=== PATIENT | female | born 1995 | race African-American/Black ===

== ENCOUNTER 2016-08-24 03:57 | Inpatient (IN) | payer OTHER ==
[~2016-08-24] VITALS: Ht 157.5 cm; Wt 45.4 kg
[~2016-08-24 03:57] MED LIST: SULF1TAB24 PO; TRAM50TA PO
[2016-08-24] MEDS ORDERED: IPRATRPIUM/ALBUTEROL 0.5/2.5MG 3 ML NEBU. NEB ONE ×2 (04:30→05:15)
[2016-08-24] MEDS ORDERED: ACETAMINOPHEN 325 MG TABLET. PO ONE (04:45)
[2016-08-24] MEDS ORDERED: ONDANSETRON PF 4 MG/2 ML VIAL. IV PRN (05:15)
[2016-08-24] MEDS ORDERED: MORPHINE SULFATE 2 MG/ML DISP.SYRIN. IV PRN (05:15)
[2016-08-24] MEDS ORDERED: PREDNISONE 10 MG TABLET PO ONE (05:15)
[2016-08-24] MEDS ORDERED: OSELTAMIVIR 75 MG CAPSULE PO ONE (05:15)
--- NOTE | 2016-08-24 05:31 | PHYS DOC ---
Past Medical History Past Medical History: Bronchitis Past Surgical History: No Surgical History Alcohol Use: None Drug Use: Cocaine, Marijuana Adult General Chief Complaint Chief Complaint: DYSPNEA/RESPIRATOY DISTRESS HPI HPI 20-year-old female presenting to the emergency department today with dyspnea cough and wheezing with fever. She is been using an inhaler without relief. She has a history of asthma. Her cough is minimally productive. She is febrile here in the emergency department. Onset 48 hours. Duration intermittent. No alleviating or exacerbating factors. Nonradiating. Review of systems is negative for nausea vomiting diarrhea. Positive for fever cough and shortness of breath. All other review of systems is negative unless otherwise noted in history of present illness. Review of Systems Review of Systems SEE ABOVE. Current Medications Current Medications Current Medications Medications (Trade) Dose Ordered Sig/Alireza Start Time Stop Time Status Last Admin Dose Admin Acetaminophen (Tylenol) 650 mg 1X ONCE 08/24/16 04:45 08/24/16 04:46 DC Albuterol/ Ipratropium (Duoneb) 3 ml RTQID 08/24/16 08:00 08/25/16 07:59 Morphine Sulfate 2 mg PRN Q2HR PRN 08/24/16 05:15 08/25/16 05:14 Ondansetron HCl (Zofran) 4 mg PRN Q8HRS PRN 08/24/16 05:15 08/25/16 05:14 Oseltamivir Phosphate (Tamiflu) 75 mg 1X ONCE 08/24/16 05:15 08/24/16 05:16 DC Prednisone (Prednisone) 50 mg 1X ONCE 08/24/16 05:15 08/24/16 05:16 DC Allergies Allergies Allergies Coded Allergies Type Severity Reaction Last Updated Verified No Known Drug Allergies 08/19/16 No Physical Exam Physical Exam Constitutional: Well developed, well nourished, no acute distress, non-toxic appearance. [] HENT: Normocephalic, atraumatic, bilateral external ears normal, oropharynx moist, no oral exudates, nose normal. [] Eyes: PERRLA, EOMI, conjunctiva normal, no discharge. [] Neck: Normal range of motion, no tenderness, supple, no stridor. [] Cardiovascular:Heart rate regular rhythm, no murmur [] Lungs & Thorax: Bilateral breath sounds clear to auscultation [] Abdomen: Bowel sounds normal, soft, no tenderness, no masses, no pulsatile masses. [] Skin: Warm, dry, no erythema, no rash. [] Back: No tenderness, no CVA tenderness. [] Extremities: No tenderness, no cyanosis, no clubbing, ROM intact, no edema. [] Neurologic: Alert and oriented X 3, normal motor function, normal sensory function, no focal deficits noted. [] Psychologic: Affect normal, judgement normal, mood normal. [] Current Patient Data Vital Signs Vital Signs Date Time Temp Pulse Resp B/P Pulse Ox O2 Delivery O2 Flow Rate FiO2 08/24/16 04:39 95 Nasal Cannula 2.0 08/24/16 04:32 102.1 128 28 102.1 EKG EKG [] Radiology/Procedures Radiology/Procedures Chest x-ray shows no obvious infiltrate or pneumothorax present. [] Course & Med Decision Making Course & Med Decision Making Pertinent Labs and Imaging studies reviewed. (See chart for details) [] 20-year-old female presenting to the emergency department today with shortness of breath cough and fever. On examination the patient's vital signs showed fever with mild hypertension. Tachypneic with wheezing and hypoxic. She was given a DuoNeb which did not improve her symptoms. Another DuoNeb was ordered. Chest x-ray obtained which did not show any obvious infiltrate. Otherwise blood work sent. Rapid flu sent. Antibiotics and Tamiflu given. Patient admitted for hypoxia. Patient admitted for further evaluation workup and care. Dragon Disclaimer Dragon Disclaimer This electronic medical record was generated, in whole or in part, using a voice recognition dictation system. Departure Departure Impression: Primary Impression: Hypoxia Additional Impressions: Acute asthma Fever Disposition: ADMITTED INPATIENT Admitting Physician: Sara Wick Condition: IMPROVED Referrals: NO PCP (PCP) Problem Qualifiers KATTY MEDINA MD Aug 24, 2016 05:31
[2016-08-24] MEDS ORDERED: CEFTRIAXONE 1GM IVPB FOR OMNI 50 ML IV ONE (05:45)
[2016-08-24 06:20] LABS: OBC FLU VALID
[2016-08-24 06:32] LABS: BASO % 0 % (0-3); EOS % 0 % (0-3); HEMATOCRIT 40.2 % (36.0-47.0); HEMOGLOBIN 13.3 g/dL (12.0-15.5); LYMPH # 0.5 x10^3/uL (1.0-4.8); LYMPH % 7 % (24-48); MEAN CORPUSCULAR HEMOGLOBIN 27 pg (25-35); MEAN CORPUSCULAR HGB CONC 33 g/dL (31-37); MEAN CORPUSCULAR VOLUME 83 fL (79-100); MONO % 11 % (0-9); NEUT % 82 % (31-73); PLATELET COUNT 169 x10^3/uL (140-400); RED BLOOD COUNT 4.86 x10^6/uL (3.50-5.40); RED CELL DISTRIBUTION WIDTH 13.1 % (11.5-14.5); WHITE BLOOD COUNT 7.9 x10^3/uL (4.0-11.0)
[2016-08-24 06:42] LABS: CALCIUM 8.9 mg/dL (8.5-10.1); CREATININE 0.8 mg/dL (0.6-1.0); GFR 108.5; POTASSIUM 3.2 mmol/L (3.5-5.1)
--- NOTE | 2016-08-24 06:47 | EKG ---
[facility] [address] [place] [address] Test Date: 2016-08-24 Test Time: 05:42:47 Pat Name: HESHAM MEADE Department: Room: ED HOLD 6 Gender: F [employer] Affairs Manager: : 1995 Requested By: KATTY MEDINA Order Number: [id number] Reading MD: Shena Dennis Measurements Intervals Caroleen Rate: 115 P: 59 WA: 148 QRS: 49 QRSD: 86 T: 56 QT: 316 QTc: 439 Interpretive Statements SINUS TACHYCARDIA OTHERWISE NORMAL ECG RI6.01 No previous ECG available for comparison Electronically Signed On 08-26-2016 18:31:51 SAMPLER TESTER by Shena Dennis
--- NOTE | 2016-08-24 07:11 | RAD ---
Portable AP upright view CXR: Clinical indications: Chest pain tonight. Findings: No acute lung infiltrate or pleural effusion or pulmonary edema or lung mass or pneumothorax is seen. The heart size, pulmonary vasculature, mediastinum and both dagoberto are unremarkable. Scoliosis is seen. Impression: No acute radiographic abnormality is seen.
[2016-08-24] MEDS: IPRATRPIUM/ALBUTEROL 0.5/2.5MG 3 ML NEBU. NEB SCH ×4 (08:00→19:32)
--- NOTE | 2016-08-24 09:10 | ACF ---
MANUEL WESTGI 08/24/16 0910: Admit Criteria Forms Admit Criteria Forms Admit Criteria Forms ASTHMA Clinical Indications for Admission to Inpatient Care (Place 'X' for any and all applicable criteria): Admission is indicated for ANY ONE of the following (1)(2)(3)(4)(5): [ ]I. Absent or markedly diminished breath sounds (silent chest) [X]II. Oxygen saturation < 92% [ ]III. PaCO2 = / > 42 mm Hg (5.6 kPa) [ ]IV. Peak expiratory flow rate < 40% of predicted or personal best after treatment. [ ]V. Peak expiratory flow rate < 33% of predicted or personal before after treatment [ ]. Change in mental status [ ]VII. Ventilatory support required [ ]VIII. PaO2 < 60 mm Hg (8.0 kPa) [ ]IX. Cyanosis [ ]X. Cardiac dysrhythmia (e.g., bradycardia) [ ]XI. Hemodynamic instability [ ]XII. Radiographic evidence of complication requiring inpatient treatment (e.g., pneumonia, pneumothorax) [ ]XIII. Inpatient admission required rather than observation care (also use Asthma: Observation Care guideline as appropriate) because of ANY ONE of the following: [ ]a) Respiratory finding that is severe or persistent (eg, dyspnea, tachypnea, accessory muscle use) [ ]b) Airflow measurements less than 60% of predicted or personal best that persist (e.g., over 24 hours) or worsen despite treatments [ ]c) Supplemental oxygen or respiratory treatments for over 24 hours that are performable only in acute inpatient setting [ ]d) Other condition, treatment or monitoring requiring inpatient admission. Extended stay beyond goal length of stay may be needed for (26)(27)(28): [ ]a) Severe respiratory failure (23) (29) (30) [ ]b) Secondary causes and complications (25) [ ]c) Status asthmaticus [ ]d) Chronic obstructive asthma [ ]e) Older patients (29) [ ]f) Slow resolution [ ]g) Clinically significant exacerbation of comorbidities (eg, caitlyn. heart failure, atrial fibrillation) The original Snapchat content created by [employer] has been revised. The portions of the content which have been revised are identified through the use of italic text or in bold, and [employer] has neither reviewed nor approved the modified material. All other unmodified content is copyright [facility] [place] Please see references footnoted in the original [facility] edition 2016 KATTY MEDINA MD 08/27/16 2331: NIKKI WEST Aug 24, 2016 09:10 KATTY MEDINA MD Aug 27, 2016 23:31
[2016-08-24 10:41] VITALS: BP 102/62
[2016-08-24] MEDS ORDERED: TRAMADOL 50 MG TABLET. PO PRN (11:00)
--- NOTE | 2016-08-24 11:52 | PDOC ---
Provider Note Provider Note dictated SHERRIE JACKMAN MD Aug 24, 2016 11:52
[2016-08-24] MEDS ORDERED: OSELTAMIVIR 75 MG CAPSULE PO SCH (12:00)
--- NOTE | 2016-08-24 12:06 | CONS ---
DATE OF CONSULTATION: 08/24/2016 ATTENDING PHYSICIAN: Dr. Wick. REASON FOR CONSULTATION: Influenza. HISTORY OF PRESENT ILLNESS: The patient is a 20-year-old female who presented to the hospital with cough, weakness and flu-like symptoms and subjective fever. She denies any history of asthma. She has history of tobacco use for about a year. She was seen in the Emergency Room and had some wheezing, as a result she was hospitalized. I have reviewed patient's chest x-ray which was clear. Her influenza screen is positive for influenza A. PAST MEDICAL HISTORY: History of chronic bronchitis. PAST SURGICAL HISTORY: None. ALLERGIES: None. CURRENT MEDICATIONS: Reviewed as listed in the MRAD. REVIEW OF SYSTEMS: Twelve-point systems were obtained, pertinent positives discussed in history of present illness, otherwise noncontributory. All systems that were negative were reviewed as well. SOCIAL HISTORY: Smoking for 1 year. PHYSICAL EXAMINATION: VITAL SIGNS: Fever of 102, pulse ox 98% on 2 liters. NECK: Supple. LUNGS: With occasional wheeze. CARDIOVASCULAR: Regular rate and rhythm. ABDOMEN: Soft. EXTREMITIES: No pitting edema. LABORATORY DATA: Reviewed. White cell count 7.9, hemoglobin 13.3. IMPRESSION: 1. Acute influenza A. 2. High-grade fever secondary to influenza. 3. Mild reactive bronchospasm secondary to influenza. The patient has no known history of asthma. RECOMMENDATIONS: 1. Continue influenza precautions. 2. Add Tamiflu. 3. Continue oral Bactrim. 4. Duo Nebs. 5. Anticipate discharge in 24 hours if there is no further fever. SHERRIE JACKMAN MD DR: CORY/anaid JOB#: [id number] / [id number] DARIO
[2016-08-24 14:46] VITALS: BP 105/68
[2016-08-24 19:00] VITALS: BP 107/53
[2016-08-24] MEDS: SMZ/TMP 800/160MG TABLET. PO SCH (21:30)
[2016-08-24] MEDS: ZOLPIDEM 5 MG TABLET. PO PRN (22:10)
[2016-08-24 23:08] VITALS: BP_SYST 102; BP_SYST 152; BP_DIAS 65; BP_DIAS 88
[2016-08-25 03:00] VITALS: BP 83/49
--- NOTE | 2016-08-25 03:23 | HP ---
ADMIT DATE: 08/24/2016 CHIEF COMPLAINT: Flu symptoms. HISTORY OF PRESENT ILLNESS: The patient is a pleasant middle-aged female presents with flu symptoms. She has got nausea, shortness of breath, wheezing, cough. While in the ER, she is noted to be flu positive. I have discussed the case with ER physician. We are going to admit the patient, start on Tamiflu and consult infectious disease. PAST MEDICAL HISTORY: Bronchitis and asthma. ALLERGIES: None. FAMILY HISTORY: Hypertension. SOCIAL HISTORY: She does not drink, smoke or take drugs. MEDICATIONS: Reviewed, please refer to the MRAD. REVIEW OF SYSTEMS: GENERAL: The patient complains of weakness. SKIN: No bruising, hair changes or rashes. EYES: No blurred, double or loss of vision. NOSE AND THROAT: No history of nosebleeds, hoarseness or sore throat. HEART: No history of palpitations, chest pain or shortness of breath on exertion. LUNGS: The patient complains of cough, shortness of breath and wheezing. GASTROINTESTINAL: Denies changes in appetite, nausea, vomiting, diarrhea or constipation. GENITOURINARY: No history of frequency, urgency, hesitancy or nocturia. NEUROLOGIC: Denies history of numbness, tingling, tremor or weakness. PSYCHIATRIC: No history of panic, anxiety or depression. ENDOCRINE: No history of heat or cold intolerance, polyuria or polydipsia. EXTREMITIES: Denies muscle weakness, joint pain, pain on walking or stiffness. PHYSICAL EXAMINATION: VITAL SIGNS: Temperature 102.1, pulse 123, respirations 22, blood pressure 101/66, O2 sat 92% on room air. GENERAL: She is alert, cooperative. HEART: Normal S1, S2. LUNGS: Slight crackles. ABDOMEN: Soft, positive bowel sounds. EXTREMITIES: No edema. SKIN: No rashes, but she does have some piercing. ENDOCRINE: No thyromegaly. LYMPHATICS: No cervical nodes. HEMATOPOIETIC: No bruising. LABORATORY DATA: Influenza A is positive. White count 7.9, hemoglobin 13, platelets 169. Electrolytes normal, although low potassium of 3.2 and glucose 112. ASSESSMENT AND PLAN: Influenza and hypokalemia. The patient is being admitted. We will replace her potassium and give her IV fluids. Start Tamiflu. Consult infectious disease. Resume home medicines. RADHAL Christie HARRY DO DR: Chio JOB#: [id number] / [id number]
[2016-08-25 06:11] LABS: BASO % 0 % (0-3); EOS % 1 % (0-3); HEMATOCRIT 39.6 % (36.0-47.0); HEMOGLOBIN 13.1 g/dL (12.0-15.5); LYMPH # 1.2 x10^3/uL (1.0-4.8); LYMPH % 20 % (24-48); MEAN CORPUSCULAR HEMOGLOBIN 27 pg (25-35); MEAN CORPUSCULAR HGB CONC 33 g/dL (31-37); MEAN CORPUSCULAR VOLUME 82 fL (79-100); MONO % 14 % (0-9); NEUT % 65 % (31-73); PLATELET COUNT 173 x10^3/uL (140-400); RED BLOOD COUNT 4.81 x10^6/uL (3.50-5.40); RED CELL DISTRIBUTION WIDTH 13.6 % (11.5-14.5); WHITE BLOOD COUNT 6.2 x10^3/uL (4.0-11.0)
[2016-08-25 06:56] LABS: CALCIUM 8.8 mg/dL (8.5-10.1); CREATININE 0.7 mg/dL (0.6-1.0); GFR 126.6; POTASSIUM 3.3 mmol/L (3.5-5.1)
[2016-08-25] MEDS: IPRATRPIUM/ALBUTEROL 0.5/2.5MG 3 ML NEBU. NEB SCH (08:11)
[2016-08-25 08:43] VITALS: BP 100/54
[2016-08-25] MEDS: OSELTAMIVIR 75 MG CAPSULE PO SCH ×2 (08:47→20:28)
[2016-08-25] MEDS: SMZ/TMP 800/160MG TABLET. PO SCH (08:47)
--- NOTE | 2016-08-25 09:26 | PDOC ---
PULMONARY PROGRESS NOTES Subjective no sob, cough better, no pain Vitals Vital Signs Date Time Temp Pulse Resp B/P Pulse Ox O2 Delivery O2 Flow Rate FiO2 08/25/16 08:43 98.3 111 20 100/54 97 98.3 08/25/16 08:01 Room Air 08/24/16 10:40 2.0 Comments ros as mentioned as above, other sys otherwise neg. General: Alert HEENT: Other (nc at perrl, throat nose clear) Lungs: Clear Cardiovascular: S1, S2 Abdomen: Soft, Non-tender Neuro Exam: Alert, Oriented Extremities: No Edema Skin: Warm Labs Laboratory Tests Test 08/24/16 05:01 08/24/16 06:10 08/24/16 06:19 08/25/16 05:00 Influenza Type A Antigen Positive (NEGATIVE) Influenza Type B Antigen Negative (NEGATIVE) White Blood Count 7.9x10^3/uL (4.0-11.0) 6.2x10^3/uL (4.0-11.0) Red Blood Count 4.86x10^6/uL (3.50-5.40) 4.81x10^6/uL (3.50-5.40) Hemoglobin 13.3g/dL (12.0-15.5) 13.1g/dL (12.0-15.5) Hematocrit 40.2% (36.0-47.0) 39.6% (36.0-47.0) Mean Corpuscular Volume 83fL (79-100) 82fL (79-100) Mean Corpuscular Hemoglobin 27pg (25-35) 27pg (25-35) Mean Corpuscular Hemoglobin Concent 33g/dL (31-37) 33g/dL (31-37) Red Cell Distribution Width 13.1% (11.5-14.5) 13.6% (11.5-14.5) Platelet Count 169x10^3/uL (140-400) 173x10^3/uL (140-400) Neutrophils (%) (Auto) 82% (31-73) 65% (31-73) Lymphocytes (%) (Auto) 7% (24-48) 20% (24-48) Monocytes (%) (Auto) 11% (0-9) 14% (0-9) Eosinophils (%) (Auto) 0% (0-3) 1% (0-3) Basophils (%) (Auto) 0% (0-3) 0% (0-3) Neutrophils # (Auto) 6.5x10^3uL (1.8-7.7) 4.0x10^3uL (1.8-7.7) Lymphocytes # (Auto) 0.5x10^3/uL (1.0-4.8) 1.2x10^3/uL (1.0-4.8) Monocytes # (Auto) 0.9x10^3/uL (0.0-1.1) 0.9x10^3/uL (0.0-1.1) Eosinophils # (Auto) 0.0x10^3/uL (0.0-0.7) 0.0x10^3/uL (0.0-0.7) Basophils # (Auto) 0.0x10^3/uL (0.0-0.2) 0.0x10^3/uL (0.0-0.2) Sodium Level 137mmol/L (136-145) 140mmol/L (136-145) Potassium Level 3.2mmol/L (3.5-5.1) 3.3mmol/L (3.5-5.1) Chloride Level 102mmol/L (98-107) 102mmol/L (98-107) Carbon Dioxide Level 26mmol/L (21-32) 28mmol/L (21-32) Anion Gap 9 (6-14) 10 (6-14) Blood Urea Nitrogen 6mg/dL (7-20) 6mg/dL (7-20) Creatinine 0.8mg/dL (0.6-1.0) 0.7mg/dL (0.6-1.0) Estimated GFR (Cockcroft-Gault) 108.5 126.6 Glucose Level 112mg/dL (70-99) 94mg/dL (70-99) Calcium Level 8.9mg/dL (8.5-10.1) 8.8mg/dL (8.5-10.1) Bedside Urine HCG, Qualitative hcg negative (Negative) Laboratory Tests Test 08/25/16 05:00 White Blood Count 6.2x10^3/uL (4.0-11.0) Red Blood Count 4.81x10^6/uL (3.50-5.40) Hemoglobin 13.1g/dL (12.0-15.5) Hematocrit 39.6% (36.0-47.0) Mean Corpuscular Volume 82fL (79-100) Mean Corpuscular Hemoglobin 27pg (25-35) Mean Corpuscular Hemoglobin Concent 33g/dL (31-37) Red Cell Distribution Width 13.6% (11.5-14.5) Platelet Count 173x10^3/uL (140-400) Neutrophils (%) (Auto) 65% (31-73) Lymphocytes (%) (Auto) 20% (24-48) Monocytes (%) (Auto) 14% (0-9) Eosinophils (%) (Auto) 1% (0-3) Basophils (%) (Auto) 0% (0-3) Neutrophils # (Auto) 4.0x10^3uL (1.8-7.7) Lymphocytes # (Auto) 1.2x10^3/uL (1.0-4.8) Monocytes # (Auto) 0.9x10^3/uL (0.0-1.1) Eosinophils # (Auto) 0.0x10^3/uL (0.0-0.7) Basophils # (Auto) 0.0x10^3/uL (0.0-0.2) Sodium Level 140mmol/L (136-145) Potassium Level 3.3mmol/L (3.5-5.1) Chloride Level 102mmol/L (98-107) Carbon Dioxide Level 28mmol/L (21-32) Anion Gap 10 (6-14) Blood Urea Nitrogen 6mg/dL (7-20) Creatinine 0.7mg/dL (0.6-1.0) Estimated GFR (Cockcroft-Gault) 126.6 Glucose Level 94mg/dL (70-99) Calcium Level 8.8mg/dL (8.5-10.1) Medications Active Scripts Medications Dose Route/Sig Days Date Category Bactrim Ds Tablet (Sulfamethoxazole/Trimethoprim) 1 Each Tablet 1 Each PO BID 08/19/16 Rx Tramadol Hcl 50 Mg Tablet 50 Mg PO Q6H PRN 08/19/16 Rx Comments cxr reviewed Impression . 1. Acute influenza A. 2. High-grade fever secondary to influenza, resolved 3. Mild reactive bronchospasm secondary to influenza. The patient has no known history of asthma. Plan . RECOMMENDATIONS: 1. Continue influenza precautions. 2. Tamiflu. 3. Continue oral Bactrim. 4. Duo Nebs. 5. ok to dc per pulm standpoint JALEN SHANKAR MD Aug 25, 2016 09:26
[2016-08-25] MEDS: CEFTRIAXONE SODIUM 1 GM in IV NORMAL SALINE 50ML 50 ML IV SCH (09:49)
--- NOTE | 2016-08-25 11:04 | PDOC ---
PROGRESS NOTES Chief Complaint Chief Complaint 1. Influenza 2. Hypokalemia 3. Fever 4.. Hx of Asthma 5. Hx of Bronchitis History of Present Illness History of Present Illness Pt feeling better this morning. Still has mild cough per her report during visit. The pt states she also feels tired/fatigued but is doing better than on admission. BLAYNE RN- VSS Vitals Vitals Vital Signs Date Time Temp Pulse Resp B/P Pulse Ox O2 Delivery O2 Flow Rate FiO2 08/25/16 08:43 98.3 111 20 100/54 97 98.3 08/25/16 08:10 Room Air 08/24/16 10:40 2.0 Physical Exam General: Alert, Oriented X3, Cooperative, No acute distress Heart: Regular rate, No murmurs Lungs: Clear, Other (no wheezes or crackles) Abdomen: Soft, No tenderness Extremities: No cyanosis, No edema Skin: No rashes, No breakdown Labs LABS Laboratory Tests Test 08/25/16 05:00 White Blood Count 6.2x10^3/uL (4.0-11.0) Red Blood Count 4.81x10^6/uL (3.50-5.40) Hemoglobin 13.1g/dL (12.0-15.5) Hematocrit 39.6% (36.0-47.0) Mean Corpuscular Volume 82fL (79-100) Mean Corpuscular Hemoglobin 27pg (25-35) Mean Corpuscular Hemoglobin Concent 33g/dL (31-37) Red Cell Distribution Width 13.6% (11.5-14.5) Platelet Count 173x10^3/uL (140-400) Neutrophils (%) (Auto) 65% (31-73) Lymphocytes (%) (Auto) 20% (24-48) Monocytes (%) (Auto) 14% (0-9) Eosinophils (%) (Auto) 1% (0-3) Basophils (%) (Auto) 0% (0-3) Neutrophils # (Auto) 4.0x10^3uL (1.8-7.7) Lymphocytes # (Auto) 1.2x10^3/uL (1.0-4.8) Monocytes # (Auto) 0.9x10^3/uL (0.0-1.1) Eosinophils # (Auto) 0.0x10^3/uL (0.0-0.7) Basophils # (Auto) 0.0x10^3/uL (0.0-0.2) Sodium Level 140mmol/L (136-145) Potassium Level 3.3mmol/L (3.5-5.1) Chloride Level 102mmol/L (98-107) Carbon Dioxide Level 28mmol/L (21-32) Anion Gap 10 (6-14) Blood Urea Nitrogen 6mg/dL (7-20) Creatinine 0.7mg/dL (0.6-1.0) Estimated GFR (Cockcroft-Gault) 126.6 Glucose Level 94mg/dL (70-99) Calcium Level 8.8mg/dL (8.5-10.1) Review of Systems Review of Systems Complaining of Mild Cough Complaining of Fatigue All other ROS Negative Assessment and Plan Assessmemt and Plan Problems Medical Problems: (1) Acute asthma Status: Acute (2) Fever Status: Acute (3) Hypoxia Status: Acute 1. Influenza 2. Hypokalemia 3. Fever 4. Asthma 5. Hx of Bronchitis Plan: - ID Consulted- Pending Recommendations - Potassium Replaced yesterday; K: 3.3 today - Pulmonary Consult- appreciate recommendations - Will continue on Oral Bactrim as recommended and Tamiflu - Tamiflu Started- will continue to complete course after discharge - Continue nebs prn - Continue regular vitals checks Disposition: Discharge when ok with subspecialists Problems: Comment Review of Relevant I have reviewed the following items denise (where applicable) has been applied. Labs Laboratory Tests Test 08/24/16 05:01 08/24/16 06:10 08/24/16 06:19 08/25/16 05:00 Influenza Type A Antigen Positive (NEGATIVE) Influenza Type B Antigen Negative (NEGATIVE) White Blood Count 7.9x10^3/uL (4.0-11.0) 6.2x10^3/uL (4.0-11.0) Red Blood Count 4.86x10^6/uL (3.50-5.40) 4.81x10^6/uL (3.50-5.40) Hemoglobin 13.3g/dL (12.0-15.5) 13.1g/dL (12.0-15.5) Hematocrit 40.2% (36.0-47.0) 39.6% (36.0-47.0) Mean Corpuscular Volume 83fL (79-100) 82fL (79-100) Mean Corpuscular Hemoglobin 27pg (25-35) 27pg (25-35) Mean Corpuscular Hemoglobin Concent 33g/dL (31-37) 33g/dL (31-37) Red Cell Distribution Width 13.1% (11.5-14.5) 13.6% (11.5-14.5) Platelet Count 169x10^3/uL (140-400) 173x10^3/uL (140-400) Neutrophils (%) (Auto) 82% (31-73) 65% (31-73) Lymphocytes (%) (Auto) 7% (24-48) 20% (24-48) Monocytes (%) (Auto) 11% (0-9) 14% (0-9) Eosinophils (%) (Auto) 0% (0-3) 1% (0-3) Basophils (%) (Auto) 0% (0-3) 0% (0-3) Neutrophils # (Auto) 6.5x10^3uL (1.8-7.7) 4.0x10^3uL (1.8-7.7) Lymphocytes # (Auto) 0.5x10^3/uL (1.0-4.8) 1.2x10^3/uL (1.0-4.8) Monocytes # (Auto) 0.9x10^3/uL (0.0-1.1) 0.9x10^3/uL (0.0-1.1) Eosinophils # (Auto) 0.0x10^3/uL (0.0-0.7) 0.0x10^3/uL (0.0-0.7) Basophils # (Auto) 0.0x10^3/uL (0.0-0.2) 0.0x10^3/uL (0.0-0.2) Sodium Level 137mmol/L (136-145) 140mmol/L (136-145) Potassium Level 3.2mmol/L (3.5-5.1) 3.3mmol/L (3.5-5.1) Chloride Level 102mmol/L (98-107) 102mmol/L (98-107) Carbon Dioxide Level 26mmol/L (21-32) 28mmol/L (21-32) Anion Gap 9 (6-14) 10 (6-14) Blood Urea Nitrogen 6mg/dL (7-20) 6mg/dL (7-20) Creatinine 0.8mg/dL (0.6-1.0) 0.7mg/dL (0.6-1.0) Estimated GFR (Cockcroft-Gault) 108.5 126.6 Glucose Level 112mg/dL (70-99) 94mg/dL (70-99) Calcium Level 8.9mg/dL (8.5-10.1) 8.8mg/dL (8.5-10.1) Bedside Urine HCG, Qualitative hcg negative (Negative) Laboratory Tests Test 08/25/16 05:00 White Blood Count 6.2x10^3/uL (4.0-11.0) Red Blood Count 4.81x10^6/uL (3.50-5.40) Hemoglobin 13.1g/dL (12.0-15.5) Hematocrit 39.6% (36.0-47.0) Mean Corpuscular Volume 82fL (79-100) Mean Corpuscular Hemoglobin 27pg (25-35) Mean Corpuscular Hemoglobin Concent 33g/dL (31-37) Red Cell Distribution Width 13.6% (11.5-14.5) Platelet Count 173x10^3/uL (140-400) Neutrophils (%) (Auto) 65% (31-73) Lymphocytes (%) (Auto) 20% (24-48) Monocytes (%) (Auto) 14% (0-9) Eosinophils (%) (Auto) 1% (0-3) Basophils (%) (Auto) 0% (0-3) Neutrophils # (Auto) 4.0x10^3uL (1.8-7.7) Lymphocytes # (Auto) 1.2x10^3/uL (1.0-4.8) Monocytes # (Auto) 0.9x10^3/uL (0.0-1.1) Eosinophils # (Auto) 0.0x10^3/uL (0.0-0.7) Basophils # (Auto) 0.0x10^3/uL (0.0-0.2) Sodium Level 140mmol/L (136-145) Potassium Level 3.3mmol/L (3.5-5.1) Chloride Level 102mmol/L (98-107) Carbon Dioxide Level 28mmol/L (21-32) Anion Gap 10 (6-14) Blood Urea Nitrogen 6mg/dL (7-20) Creatinine 0.7mg/dL (0.6-1.0) Estimated GFR (Cockcroft-Gault) 126.6 Glucose Level 94mg/dL (70-99) Calcium Level 8.8mg/dL (8.5-10.1) Microbiology 08/24/16 Blood Culture - Final, Complete Medications Current Medications Albuterol/ Ipratropium (Duoneb) 3 ml 1X ONCE NEB Last administered on 04:40; Start 08/24/16 at 04:30; Stop 08/24/16 at 04:31; Status DC Acetaminophen (Tylenol) 650 mg 1X ONCE PO Last administered on 08/24/16 06:21 ; Start 08/24/16 at 04:45; Stop 08/24/16 at 04:46; Status DC Albuterol/ Ipratropium (Duoneb) 3 ml 1X ONCE NEB Last administered on 06:11; Start 08/24/16 at 05:15; Stop 08/24/16 at 05:16; Status DC Oseltamivir Phosphate (Tamiflu) 75 mg 1X ONCE PO Last administered on 06:22; Start 08/24/16 at 05:15; Stop 08/24/16 at 05:16; Status DC Ondansetron HCl (Zofran) 4 mg PRN Q8HRS PRN IV NAUSEA/VOMITING Last administered on 08/24/16 06:25; Start 08/24/16 at 05:15; Stop 08/25/16 at 05:14 ; Status DC Morphine Sulfate 2 mg PRN Q2HR PRN IV PAIN Last administered on 08/24/16 06:25 ; Start 08/24/16 at 05:15; Stop 08/25/16 at 05:14; Status DC Albuterol/ Ipratropium (Duoneb) 3 ml RTQID NEB Last administered on 08/25/16 08:11; Start 08/24/16 at 08:00; Stop 08/25/16 at 07:59; Status DC Prednisone 50 mg 50 mg 1X ONCE PO Last administered on 08/24/16 06:22; Start 08/24/16 at 05:15; Stop 08/24/16 at 05:16; Status DC Ceftriaxone Sodium (Rocephin 1gm Ivpb For Omni) 50 ml @ 100 mls/hr 1X ONCE IV Last administered on 08/24/16 06:23; Start 08/24/16 at 05:45; Stop 08/24/16 at 06:14; Status DC Trimethoprim/ Sulfamethoxazole (Bactrim Ds) 1 tab BID PO Last administered on 08:47; Start 08/24/16 at 21:00 Tramadol HCl (Ultram) 50 mg PRN Q6HRS PRN PO PAIN; Start 08/24/16 at 11:00 Oseltamivir Phosphate (Tamiflu) 75 mg BID PO Last administered on 08/24/16 16: 12; Start 08/24/16 at 12:00; Stop 08/24/16 at 19:13; Status DC Oseltamivir Phosphate (Tamiflu) 75 mg BID PO Last administered on 08/25/16 08: 47; Start 08/25/16 at 09:00; Stop 08/29/16 at 21:01 Zolpidem Tartrate 5 mg 5 mg PRN QHS PRN PO INSOMNIA Last administered on 22:10; Start 08/24/16 at 22:00; Stop 08/25/16 at 21:59 Ceftriaxone Sodium/Sodium Chloride (Rocephin/Iv Sodium Chloride 0.9% 50ml) 50 ml @ 100 mls/hr Q24H IV Last administered on 08/25/16 09:49; Start 08/25/16 at 09:30 Active Scripts Active Bactrim Ds Tablet (Sulfamethoxazole/Trimethoprim) 1 Each Tablet 1 Each PO BID Tramadol Hcl 50 Mg Tablet 50 Mg PO Q6H PRN Vitals/I & O Vital Sign - Last 24 Hours 08/24/16 08/24/16 08/24/16 08/24/16 11:50 14:46 14:49 15:45 Temp 98.3 98.3 Pulse 85 Resp 20 B/P 105/68 Pulse Ox 94 93 94 O2 Delivery Room Air Room Air Room Air Room Air 08/24/16 08/24/16 08/24/16 08/24/16 19:00 19:39 20:00 23:08 Temp 97.8 98.9 97.8 98.9 Pulse 86 98 Resp 20 20 B/P 107/53 102/65 Pulse Ox 95 94 94 O2 Delivery Room Air Room Air Room Air Room Air 08/25/16 08/25/16 08/25/16 08/25/16 03:00 08:01 08:10 08:43 Temp 98.3 98.3 98.3 98.3 Pulse 107 111 Resp 20 20 B/P 83/49 100/54 Pulse Ox 90 94 97 O2 Delivery Room Air Room Air Room Air Intake and Output 08/24/16 08/24/16 08/25/16 15:00 23:00 07:00 Intake Total 1200 ml 690 ml Balance 1200 ml 690 ml HOLLY HARRY III DO Aug 25, 2016 11:04
[2016-08-25 11:15] VITALS: BP 99/74
[2016-08-25] MEDS ORDERED: ONDANSETRON PF 4 MG/2 ML VIAL. IV PRN (13:30)
[2016-08-25 15:00] VITALS: BP 100/60
--- NOTE | 2016-08-25 15:49 | PDOC ---
Infectious Disease Note Vital Sign Vital Signs Vital Signs Date Time Temp Pulse Resp B/P Pulse Ox O2 Delivery O2 Flow Rate FiO2 08/25/16 11:15 98.5 110 20 99/74 94 98.5 08/25/16 08:10 Room Air 08/24/16 10:40 2.0 Labs Lab Laboratory Tests Test 08/25/16 05:00 White Blood Count 6.2x10^3/uL (4.0-11.0) Red Blood Count 4.81x10^6/uL (3.50-5.40) Hemoglobin 13.1g/dL (12.0-15.5) Hematocrit 39.6% (36.0-47.0) Mean Corpuscular Volume 82fL (79-100) Mean Corpuscular Hemoglobin 27pg (25-35) Mean Corpuscular Hemoglobin Concent 33g/dL (31-37) Red Cell Distribution Width 13.6% (11.5-14.5) Platelet Count 173x10^3/uL (140-400) Neutrophils (%) (Auto) 65% (31-73) Lymphocytes (%) (Auto) 20% (24-48) Monocytes (%) (Auto) 14% (0-9) Eosinophils (%) (Auto) 1% (0-3) Basophils (%) (Auto) 0% (0-3) Neutrophils # (Auto) 4.0x10^3uL (1.8-7.7) Lymphocytes # (Auto) 1.2x10^3/uL (1.0-4.8) Monocytes # (Auto) 0.9x10^3/uL (0.0-1.1) Eosinophils # (Auto) 0.0x10^3/uL (0.0-0.7) Basophils # (Auto) 0.0x10^3/uL (0.0-0.2) Sodium Level 140mmol/L (136-145) Potassium Level 3.3mmol/L (3.5-5.1) Chloride Level 102mmol/L (98-107) Carbon Dioxide Level 28mmol/L (21-32) Anion Gap 10 (6-14) Blood Urea Nitrogen 6mg/dL (7-20) Creatinine 0.7mg/dL (0.6-1.0) Estimated GFR (Cockcroft-Gault) 126.6 Glucose Level 94mg/dL (70-99) Calcium Level 8.8mg/dL (8.5-10.1) Objective Assessment Influenza Strep bacteremia Asthma Plan Plan of Care tamiflu rocephine check culture and adjust BURTON CERON MD Aug 25, 2016 15:49
[2016-08-25 19:00] VITALS: BP 108/67
[2016-08-25] MEDS: ZOLPIDEM 5 MG TABLET. PO PRN (20:28)
[2016-08-25 23:00] VITALS: BP 97/55
--- NOTE | 2016-08-26 00:11 | CONS ---
DATE OF CONSULTATION: 08/25/2016 REQUESTING PHYSICIAN: Dr. Sara Wick. REASON FOR CONSULTATION: Blood culture positive. HISTORY OF PRESENT ILLNESS: This is a 20-year-old -Citizen Of [place] female who had been sick for a couple of days. She says earlier this month, she came to the ER with bladder spasm. The patient was diagnosed with UTI, was given Bactrim. The patient now comes in with high-grade fever, some chills, not feeling well, aching all over, some nausea, cough, sore throat. The patient is diagnosed with influenza A. Also, patient has now blood culture positive with Gram-positive cocci in pairs and chains. I started her on Rocephin. The patient is on Tamiflu. The patient is feeling much comfortable now. The patient denies any headache, visual symptoms. Denies any chest pain, denies any abdominal pain, denies any urinary symptoms or bowel symptoms. Does have dry cough. PAST MEDICAL HISTORY: Positive for asthma. SOCIAL HISTORY: Negative for smoking, alcohol, illicit drug use. ALLERGIES: No known drug allergies. CURRENT MEDICATIONS: Reviewed. The patient is on Tamiflu and Rocephin. REVIEW OF SYSTEMS: As per HPI, all other systems reviewed are negative. PHYSICAL EXAMINATION: GENERAL: Alert, oriented female, not in distress. VITAL SIGNS: Stable, afebrile. HEENT: Both pupils are round and reacting. No conjunctival lesion, no lesion in the mouth. NECK: Supple, no JVP, no lymphadenopathy. LUNGS: Clear. HEART: S1, S2 regular. ABDOMEN: Benign. EXTREMITIES: No edema, cyanosis. SKIN: Unremarkable. NEUROLOGIC: The patient is neurologically intact. LABORATORY DATA: White count is normal. BUN and creatinine is normal. Chest x-ray is unremarkable. IMPRESSION: 1. Influenza A positive. 2. Blood culture positive with Gram-positive cocci in pairs and chains, most likely to be strep pneumo. 3. Fever. 4. Asthma. RECOMMENDATION: Would continue Tamiflu and Rocephin, supportive care and we will continue to follow. Thank you very much, Dr. Wick for giving me the opportunity to participate in this patient's care. BURTON CERON MD DR: ZEN/anaid JOB#: [id number] / [id number]
[2016-08-26 03:00] VITALS: BP 94/54
[2016-08-26] MEDS: OSELTAMIVIR 75 MG CAPSULE PO SCH ×2 (08:28→20:13)
[2016-08-26] MEDS: CEFTRIAXONE SODIUM 1 GM in IV NORMAL SALINE 50ML 50 ML IV SCH (08:28)
[2016-08-26 11:00] VITALS: BP 99/69
--- NOTE | 2016-08-26 12:14 | PDOC ---
Infectious Disease Note Subjective Subjective Feeling better Nonproductive cough. Denies SOA or CP ROS ROS GEN: Denies fevers, chills, sweats GI: Denies n/v/d Vital Sign Vital Signs Vital Signs Date Time Temp Pulse Resp B/P Pulse Ox O2 Delivery O2 Flow Rate FiO2 08/26/16 11:00 98.0 93 20 99/69 97 Room Air 98.0 Physical Exam PHYSICAL EXAM GENERAL: Walking back to bed, smiling, NAD HEENT: OC/OP clear NECK: Supple, LUNGS: Clear HEART: S1S2, no gallop, no murmur ABD: Soft, NT, BS present EXT: No edema, no cyanosis ANIMAL REHABILITATOR: Alert, oriented x 3, no focal neurologic deficit SKIN: No rash Labs Micro BLOOD CULTURE Final GRAM POSITIVE COCCI IN CHAINS, SUGGESTIVE OF STREP, Objective Assessment Influenza A positive. Bacteremia with gram-positive cocci in pairs and chains, most likely to be strep pneumo. POA Fever. Asthma. Plan Plan of Care Continue Tamiflu and Rocephin Await GPC ID Supportive care Attending Co-Sign The patient was seen and interviewed as well as examined at the bedside. The chart was reviewed. The case was discussed. Agree with the plan of care. BG GANDHI APRN Aug 26, 2016 12:14 BURTON CERON MD Aug 26, 2016 14:03
--- NOTE | 2016-08-26 14:38 | PDOC ---
PROGRESS NOTES Chief Complaint Chief Complaint 1. Influenza 2. Step Bacteremia 3. Hypokalemia 4. Fever 5. Hx of Asthma 6. Hx of Bronchitis History of Present Illness History of Present Illness Pt feeling better this morning. Still has mild persistent cough but improved since her admission. The pt has no new complaints at this time. Stated her tiredness/fatigue continues to improve at this time. BLAYNE RN- VSS; No problems overnight Vitals Vitals Vital Signs Date Time Temp Pulse Resp B/P Pulse Ox O2 Delivery O2 Flow Rate FiO2 08/26/16 11:00 98.0 93 20 99/69 97 Room Air 98.0 Physical Exam General: Alert, Oriented X3, Cooperative, No acute distress Heart: Regular rate, No murmurs Lungs: Clear, Other (no wheezes) Abdomen: Soft, No tenderness Extremities: No cyanosis, No edema Skin: No rashes, No breakdown Review of Systems Review of Systems Complaining of Fatigue Complaining of mild Cough All other ROS Negative Assessment and Plan Assessmemt and Plan Problems Medical Problems: (1) Acute asthma Status: Acute (2) Fever Status: Acute (3) Hypoxia Status: Acute 1. Influenza 2. Step Bacteremia 3. Hypokalemia 4. Fever 5. Hx of Asthma 6. Hx of Bronchitis Plan: - Continue Care per floor protocol - ID Consulted- Appreciate Recommendations - Will continue Tamiflu - ID started on Rocephin for Strep Bacteremia - Waiting Identification of the GPC - Await further recommendations - Potassium Replaced on admission; K: 3.3 agian today - Pulmonary Consult- appreciate recommendations - Will continue Tamiflu at this time - Continue nebs prn - Continue regular vitals checks Disposition: Discharge when ok with subspecialists Problems: Comment Review of Relevant I have reviewed the following items denise (where applicable) has been applied. Labs Laboratory Tests Test 08/25/16 05:00 White Blood Count 6.2x10^3/uL (4.0-11.0) Red Blood Count 4.81x10^6/uL (3.50-5.40) Hemoglobin 13.1g/dL (12.0-15.5) Hematocrit 39.6% (36.0-47.0) Mean Corpuscular Volume 82fL (79-100) Mean Corpuscular Hemoglobin 27pg (25-35) Mean Corpuscular Hemoglobin Concent 33g/dL (31-37) Red Cell Distribution Width 13.6% (11.5-14.5) Platelet Count 173x10^3/uL (140-400) Neutrophils (%) (Auto) 65% (31-73) Lymphocytes (%) (Auto) 20% (24-48) Monocytes (%) (Auto) 14% (0-9) Eosinophils (%) (Auto) 1% (0-3) Basophils (%) (Auto) 0% (0-3) Neutrophils # (Auto) 4.0x10^3uL (1.8-7.7) Lymphocytes # (Auto) 1.2x10^3/uL (1.0-4.8) Monocytes # (Auto) 0.9x10^3/uL (0.0-1.1) Eosinophils # (Auto) 0.0x10^3/uL (0.0-0.7) Basophils # (Auto) 0.0x10^3/uL (0.0-0.2) Sodium Level 140mmol/L (136-145) Potassium Level 3.3mmol/L (3.5-5.1) Chloride Level 102mmol/L (98-107) Carbon Dioxide Level 28mmol/L (21-32) Anion Gap 10 (6-14) Blood Urea Nitrogen 6mg/dL (7-20) Creatinine 0.7mg/dL (0.6-1.0) Estimated GFR (Cockcroft-Gault) 126.6 Glucose Level 94mg/dL (70-99) Calcium Level 8.8mg/dL (8.5-10.1) Microbiology 08/24/16 Blood Culture - Final, Complete Medications Current Medications Albuterol/ Ipratropium (Duoneb) 3 ml 1X ONCE NEB Last administered on 04:40; Start 08/24/16 at 04:30; Stop 08/24/16 at 04:31; Status DC Acetaminophen (Tylenol) 650 mg 1X ONCE PO Last administered on 08/24/16 06:21 ; Start 08/24/16 at 04:45; Stop 08/24/16 at 04:46; Status DC Albuterol/ Ipratropium (Duoneb) 3 ml 1X ONCE NEB Last administered on 06:11; Start 08/24/16 at 05:15; Stop 08/24/16 at 05:16; Status DC Oseltamivir Phosphate (Tamiflu) 75 mg 1X ONCE PO Last administered on 06:22; Start 08/24/16 at 05:15; Stop 08/24/16 at 05:16; Status DC Ondansetron HCl (Zofran) 4 mg PRN Q8HRS PRN IV NAUSEA/VOMITING Last administered on 08/24/16 06:25; Start 08/24/16 at 05:15; Stop 08/25/16 at 05:14 ; Status DC Morphine Sulfate 2 mg PRN Q2HR PRN IV PAIN Last administered on 08/24/16 06:25 ; Start 08/24/16 at 05:15; Stop 08/25/16 at 05:14; Status DC Albuterol/ Ipratropium (Duoneb) 3 ml RTQID NEB Last administered on 08/25/16 08:11; Start 08/24/16 at 08:00; Stop 08/25/16 at 07:59; Status DC Prednisone 50 mg 50 mg 1X ONCE PO Last administered on 08/24/16 06:22; Start 08/24/16 at 05:15; Stop 08/24/16 at 05:16; Status DC Ceftriaxone Sodium (Rocephin 1gm Ivpb For Omni) 50 ml @ 100 mls/hr 1X ONCE IV Last administered on 08/24/16 06:23; Start 08/24/16 at 05:45; Stop 08/24/16 at 06:14; Status DC Trimethoprim/ Sulfamethoxazole (Bactrim Ds) 1 tab BID PO Last administered on 08:47; Start 08/24/16 at 21:00; Stop 08/25/16 at 15:52; Status DC Tramadol HCl (Ultram) 50 mg PRN Q6HRS PRN PO PAIN; Start 08/24/16 at 11:00 Oseltamivir Phosphate (Tamiflu) 75 mg BID PO Last administered on 08/24/16 16: 12; Start 08/24/16 at 12:00; Stop 08/24/16 at 19:13; Status DC Oseltamivir Phosphate (Tamiflu) 75 mg BID PO Last administered on 2/12/17at 08: 28; Start 08/25/16 at 09:00; Stop 08/29/16 at 21:01 Zolpidem Tartrate 5 mg 5 mg PRN QHS PRN PO INSOMNIA Last administered on 20:28; Start 08/24/16 at 22:00; Stop 08/25/16 at 21:59; Status DC Ceftriaxone Sodium/Sodium Chloride (Rocephin/Iv Sodium Chloride 0.9% 50ml) 50 ml @ 100 mls/hr Q24H IV Last administered on 08/26/16 08:28; Start 08/25/16 at 09:30 Ondansetron HCl (Zofran) 4 mg PRN Q6HRS PRN IV NAUSEA/VOMITING Last administered on 08/25/16 14:00; Start 08/25/16 at 13:30 Active Scripts Active Bactrim Ds Tablet (Sulfamethoxazole/Trimethoprim) 1 Each Tablet 1 Each PO BID Tramadol Hcl 50 Mg Tablet 50 Mg PO Q6H PRN Vitals/I & O Vital Sign - Last 24 Hours 08/25/16 08/25/16 08/25/16 08/25/16 15:00 19:00 20:15 23:00 Temp 97.9 99.3 99.0 97.9 99.3 99.0 Pulse 104 104 96 Resp 22 22 20 B/P 100/60 108/67 97/55 Pulse Ox 96 93 92 O2 Delivery Room Air Room Air Room Air 08/26/16 08/26/16 08/26/16 08/26/16 03:00 07:00 08:00 11:00 Temp 98.7 98.6 98.0 98.7 98.6 98.0 Pulse 79 62 93 Resp 16 16 20 B/P 94/54 99/69 Pulse Ox 95 97 O2 Delivery Room Air Room Air Intake and Output 08/25/16 08/25/16 08/26/16 15:00 23:00 07:00 Intake Total 720 ml 1240 ml 1000 ml Output Total 1 ml Balance 719 ml 1240 ml 1000 ml HOLLY HARRY III DO Aug 26, 2016 14:38
[2016-08-26] MEDS ORDERED: LORAZEPAM 0.5 MG TABLET. PO ONE (14:45)
[2016-08-26 15:40] VITALS: BP 113/79
[2016-08-26 19:00] VITALS: BP 93/63
[2016-08-26 20:00] VITALS: BP 93/63
[2016-08-26] MEDS ORDERED: ZOLPIDEM 5 MG TABLET. PO PRN (20:30)
[2016-08-26 23:00] VITALS: BP 124/86
[2016-08-27 03:00] VITALS: BP 96/53
[2016-08-27 07:00] VITALS: BP 105/70
[2016-08-27 07:27] LABS: BASO % 1 % (0-3); EOS % 7 % (0-3); HEMOGLOBIN 13.3 g/dL (12.0-15.5); LYMPH # 1.2 x10^3/uL (1.0-4.8); LYMPH % 37 % (24-48); MEAN CORPUSCULAR HEMOGLOBIN 27 pg (25-35); MEAN CORPUSCULAR HGB CONC 33 g/dL (31-37); MEAN CORPUSCULAR VOLUME 84 fL (79-100); MONO % 22 % (0-9); NEUT % 33 % (31-73); PLATELET COUNT 193 x10^3/uL (140-400); RED BLOOD COUNT 4.91 x10^6/uL (3.50-5.40); RED CELL DISTRIBUTION WIDTH 13.6 % (11.5-14.5); WHITE BLOOD COUNT 3.3 x10^3/uL (4.0-11.0)
[2016-08-27 07:34] LABS: CALCIUM 9.1 mg/dL (8.5-10.1); CREATININE 0.8 mg/dL (0.6-1.0); GFR 108.5; POTASSIUM 3.9 mmol/L (3.5-5.1)
[2016-08-27 08:29] LABS: % EOS 6 % (0-5)
[2016-08-27 08:30] LABS: PLT ESTIMATE ADEQUATE (ADEQUATE)
[2016-08-27] MEDS: OSELTAMIVIR 75 MG CAPSULE PO SCH (09:35)
[2016-08-27] MEDS: CEFTRIAXONE SODIUM 1 GM in IV NORMAL SALINE 50ML 50 ML IV SCH (09:35)
[2016-08-27 11:00] VITALS: BP 111/77
--- NOTE | 2016-08-27 11:54 | PDOC ---
PROGRESS NOTES Chief Complaint Chief Complaint 1. Influenza 2. Step Bacteremia 3. Hypokalemia 4. Fever 5. Hx of Asthma 6. Hx of Bronchitis History of Present Illness History of Present Illness Patient awake, alert, and oriented when seen this AM. Family members present and at bedside. Pt states she really wants to go home. Pt states she is very anxious and stressed but will not identify any inducing factor. All questions and concerns addressed and answered. BLAYNE RN- VSS; No problems overnight Vitals Vitals Vital Signs Date Time Temp Pulse Resp B/P Pulse Ox O2 Delivery O2 Flow Rate FiO2 08/27/16 11:00 96.1 109 18 111/77 98 Room Air 96.1 Physical Exam General: Alert, Oriented X3, Cooperative, No acute distress Heart: Regular rate, Normal S1, Normal S2, No murmurs Lungs: Clear, Other (no wheezes) Abdomen: Soft, No tenderness Extremities: No clubbing, No cyanosis, No edema Skin: No rashes, No breakdown, No significant lesion Labs LABS Laboratory Tests Test 08/27/16 06:55 White Blood Count 3.3x10^3/uL (4.0-11.0) Red Blood Count 4.91x10^6/uL (3.50-5.40) Hemoglobin 13.3g/dL (12.0-15.5) Hematocrit 41.0% (36.0-47.0) Mean Corpuscular Volume 84fL (79-100) Mean Corpuscular Hemoglobin 27pg (25-35) Mean Corpuscular Hemoglobin Concent 33g/dL (31-37) Red Cell Distribution Width 13.6% (11.5-14.5) Platelet Count 193x10^3/uL (140-400) Neutrophils (%) (Auto) 33% (31-73) Lymphocytes (%) (Auto) 37% (24-48) Monocytes (%) (Auto) 22% (0-9) Eosinophils (%) (Auto) 7% (0-3) Basophils (%) (Auto) 1% (0-3) Neutrophils # (Auto) 1.1x10^3uL (1.8-7.7) Lymphocytes # (Auto) 1.2x10^3/uL (1.0-4.8) Monocytes # (Auto) 0.7x10^3/uL (0.0-1.1) Eosinophils # (Auto) 0.2x10^3/uL (0.0-0.7) Basophils # (Auto) 0.0x10^3/uL (0.0-0.2) Segmented Neutrophils % 30% (35-66) Band Neutrophils % 3% (0-9) Lymphocytes % 43% (24-48) Atypical Lymphocytes % (Manual) 1% (0-0) Monocytes % 17% (0-10) Eosinophils % 6% (0-5) Platelet Estimate Adequate (ADEQUATE) Sodium Level 143mmol/L (136-145) Potassium Level 3.9mmol/L (3.5-5.1) Chloride Level 106mmol/L (98-107) Carbon Dioxide Level 27mmol/L (21-32) Anion Gap 10 (6-14) Blood Urea Nitrogen 11mg/dL (7-20) Creatinine 0.8mg/dL (0.6-1.0) Estimated GFR (Cockcroft-Gault) 108.5 Glucose Level 80mg/dL (70-99) Calcium Level 9.1mg/dL (8.5-10.1) Review of Systems Review of Systems Patient complaint of anxiety Patient complaint of hunger Assessment and Plan Assessmemt and Plan Problems Medical Problems: (1) Acute asthma Status: Acute (2) Fever Status: Acute (3) Hypoxia Status: Acute Assessment: 1. Influenza 2. Step Bacteremia 3. Hypokalemia 4. Fever 5. Hx of Asthma 6. Hx of Bronchitis Plan: Continue to monitor the patient per floor protocol Daily CBC, BMP, BUN, and Cr Continue to monitor vitals DW RN Appreciate ID and Pulmonary input and recommendations Continue Tamiful at DC Possible DC later this afternoon Problems: Comment Review of Relevant I have reviewed the following items denise (where applicable) has been applied. Labs Laboratory Tests Test 08/27/16 06:55 White Blood Count 3.3x10^3/uL (4.0-11.0) Red Blood Count 4.91x10^6/uL (3.50-5.40) Hemoglobin 13.3g/dL (12.0-15.5) Hematocrit 41.0% (36.0-47.0) Mean Corpuscular Volume 84fL (79-100) Mean Corpuscular Hemoglobin 27pg (25-35) Mean Corpuscular Hemoglobin Concent 33g/dL (31-37) Red Cell Distribution Width 13.6% (11.5-14.5) Platelet Count 193x10^3/uL (140-400) Neutrophils (%) (Auto) 33% (31-73) Lymphocytes (%) (Auto) 37% (24-48) Monocytes (%) (Auto) 22% (0-9) Eosinophils (%) (Auto) 7% (0-3) Basophils (%) (Auto) 1% (0-3) Neutrophils # (Auto) 1.1x10^3uL (1.8-7.7) Lymphocytes # (Auto) 1.2x10^3/uL (1.0-4.8) Monocytes # (Auto) 0.7x10^3/uL (0.0-1.1) Eosinophils # (Auto) 0.2x10^3/uL (0.0-0.7) Basophils # (Auto) 0.0x10^3/uL (0.0-0.2) Segmented Neutrophils % 30% (35-66) Band Neutrophils % 3% (0-9) Lymphocytes % 43% (24-48) Atypical Lymphocytes % (Manual) 1% (0-0) Monocytes % 17% (0-10) Eosinophils % 6% (0-5) Platelet Estimate Adequate (ADEQUATE) Sodium Level 143mmol/L (136-145) Potassium Level 3.9mmol/L (3.5-5.1) Chloride Level 106mmol/L (98-107) Carbon Dioxide Level 27mmol/L (21-32) Anion Gap 10 (6-14) Blood Urea Nitrogen 11mg/dL (7-20) Creatinine 0.8mg/dL (0.6-1.0) Estimated GFR (Cockcroft-Gault) 108.5 Glucose Level 80mg/dL (70-99) Calcium Level 9.1mg/dL (8.5-10.1) Laboratory Tests Test 08/27/16 06:55 White Blood Count 3.3x10^3/uL (4.0-11.0) Red Blood Count 4.91x10^6/uL (3.50-5.40) Hemoglobin 13.3g/dL (12.0-15.5) Hematocrit 41.0% (36.0-47.0) Mean Corpuscular Volume 84fL (79-100) Mean Corpuscular Hemoglobin 27pg (25-35) Mean Corpuscular Hemoglobin Concent 33g/dL (31-37) Red Cell Distribution Width 13.6% (11.5-14.5) Platelet Count 193x10^3/uL (140-400) Neutrophils (%) (Auto) 33% (31-73) Lymphocytes (%) (Auto) 37% (24-48) Monocytes (%) (Auto) 22% (0-9) Eosinophils (%) (Auto) 7% (0-3) Basophils (%) (Auto) 1% (0-3) Neutrophils # (Auto) 1.1x10^3uL (1.8-7.7) Lymphocytes # (Auto) 1.2x10^3/uL (1.0-4.8) Monocytes # (Auto) 0.7x10^3/uL (0.0-1.1) Eosinophils # (Auto) 0.2x10^3/uL (0.0-0.7) Basophils # (Auto) 0.0x10^3/uL (0.0-0.2) Segmented Neutrophils % 30% (35-66) Band Neutrophils % 3% (0-9) Lymphocytes % 43% (24-48) Atypical Lymphocytes % (Manual) 1% (0-0) Monocytes % 17% (0-10) Eosinophils % 6% (0-5) Platelet Estimate Adequate (ADEQUATE) Sodium Level 143mmol/L (136-145) Potassium Level 3.9mmol/L (3.5-5.1) Chloride Level 106mmol/L (98-107) Carbon Dioxide Level 27mmol/L (21-32) Anion Gap 10 (6-14) Blood Urea Nitrogen 11mg/dL (7-20) Creatinine 0.8mg/dL (0.6-1.0) Estimated GFR (Cockcroft-Gault) 108.5 Glucose Level 80mg/dL (70-99) Calcium Level 9.1mg/dL (8.5-10.1) Microbiology 08/24/16 Blood Culture - Preliminary, Resulted 08/24/16 Blood Culture Result 1 (LINDA) - Preliminary, Resulted Medications Current Medications Albuterol/ Ipratropium (Duoneb) 3 ml 1X ONCE NEB Last administered on 04:40; Start 08/24/16 at 04:30; Stop 08/24/16 at 04:31; Status DC Acetaminophen (Tylenol) 650 mg 1X ONCE PO Last administered on 08/24/16 06:21 ; Start 08/24/16 at 04:45; Stop 08/24/16 at 04:46; Status DC Albuterol/ Ipratropium (Duoneb) 3 ml 1X ONCE NEB Last administered on 06:11; Start 08/24/16 at 05:15; Stop 08/24/16 at 05:16; Status DC Oseltamivir Phosphate (Tamiflu) 75 mg 1X ONCE PO Last administered on 06:22; Start 08/24/16 at 05:15; Stop 08/24/16 at 05:16; Status DC Ondansetron HCl (Zofran) 4 mg PRN Q8HRS PRN IV NAUSEA/VOMITING Last administered on 08/24/16 06:25; Start 08/24/16 at 05:15; Stop 08/25/16 at 05:14 ; Status DC Morphine Sulfate 2 mg PRN Q2HR PRN IV PAIN Last administered on 08/24/16 06:25 ; Start 08/24/16 at 05:15; Stop 08/25/16 at 05:14; Status DC Albuterol/ Ipratropium (Duoneb) 3 ml RTQID NEB Last administered on 08/25/16 08:11; Start 08/24/16 at 08:00; Stop 08/25/16 at 07:59; Status DC Prednisone 50 mg 50 mg 1X ONCE PO Last administered on 08/24/16 06:22; Start 08/24/16 at 05:15; Stop 08/24/16 at 05:16; Status DC Ceftriaxone Sodium (Rocephin 1gm Ivpb For Omni) 50 ml @ 100 mls/hr 1X ONCE IV Last administered on 08/24/16 06:23; Start 08/24/16 at 05:45; Stop 08/24/16 at 06:14; Status DC Trimethoprim/ Sulfamethoxazole (Bactrim Ds) 1 tab BID PO Last administered on 08:47; Start 08/24/16 at 21:00; Stop 08/25/16 at 15:52; Status DC Tramadol HCl (Ultram) 50 mg PRN Q6HRS PRN PO PAIN; Start 08/24/16 at 11:00 Oseltamivir Phosphate (Tamiflu) 75 mg BID PO Last administered on 08/24/16 16: 12; Start 08/24/16 at 12:00; Stop 08/24/16 at 19:13; Status DC Oseltamivir Phosphate (Tamiflu) 75 mg BID PO Last administered on 08/27/16 09: 35; Start 08/25/16 at 09:00; Stop 08/29/16 at 21:01 Zolpidem Tartrate 5 mg 5 mg PRN QHS PRN PO INSOMNIA Last administered on 20:28; Start 08/24/16 at 22:00; Stop 08/25/16 at 21:59; Status DC Ceftriaxone Sodium/Sodium Chloride (Rocephin/Iv Sodium Chloride 0.9% 50ml) 50 ml @ 100 mls/hr Q24H IV Last administered on 08/27/16 09:35; Start 08/25/16 at 09:30 Ondansetron HCl (Zofran) 4 mg PRN Q6HRS PRN IV NAUSEA/VOMITING Last administered on 08/25/16 14:00; Start 08/25/16 at 13:30 Lorazepam (Ativan) 0.5 mg 1X ONCE PO Last administered on 08/26/16 14:37; Start 08/26/16 at 14:45; Stop 08/26/16 at 14:46; Status DC Zolpidem Tartrate (Ambien) 5 mg PRN QHS PRN PO INSOMNIA Last administered on 22:10; Start 08/26/16 at 20:30 Active Scripts Active Bactrim Ds Tablet (Sulfamethoxazole/Trimethoprim) 1 Each Tablet 1 Each PO BID Tramadol Hcl 50 Mg Tablet 50 Mg PO Q6H PRN Vitals/I & O Vital Sign - Last 24 Hours 08/26/16 08/26/16 08/26/16 08/26/16 15:40 19:00 20:00 20:10 Temp 97.9 98.6 98.6 97.9 98.6 98.6 Pulse 100 99 99 Resp 20 B/P 113/79 93/63 93/63 Pulse Ox 100 100 100 O2 Delivery Room Air Room Air Room Air Room Air 08/26/16 08/27/16 08/27/16 08/27/16 23:00 03:00 07:00 11:00 Temp 98.6 97.6 100.2 96.1 98.6 97.6 100.2 96.1 Pulse 73 75 72 109 Resp 18 B/P 124/86 96/53 105/70 111/77 Pulse Ox 96 98 95 98 O2 Delivery Room Air Room Air Room Air Room Air Intake and Output 08/26/16 08/26/16 08/27/16 15:00 23:00 07:00 Intake Total 500 ml 240 ml 250 ml Balance 500 ml 240 ml 250 ml HOLLY HARRY III DO Aug 27, 2016 11:54
--- NOTE | 2016-09-03 09:22 | DS ---
DATE OF DISCHARGE: 08/27/2016 ADMISSION DIAGNOSIS: Influenza. DISCHARGE DIAGNOSIS: Resolving influenza. HOSPITAL COURSE: The patient is a pleasant 20-year-old female who presented with influenza. She was admitted. We gave her IV fluids and Tamiflu. We consulted ID. Basically, she returned to her baseline. We discharged her home on continued Tamiflu. DISPOSITION: Home. ACTIVITY: As tolerated. DIET: Low sodium. MEDICATIONS: Please see the MRAD. TOTAL TIME ON DISCHARGE: 36 minutes. HOLLY HARRY DO DR: SREEDHAR/anaid JOB#: [id number] / [id number]
== END 2016-08-27 13:10 | disposition home or self-care (01) | DRG 872 ==
LOC: ER 03:57 → ED HOLD 05:10 → 5 SOUTH 09:47
PROVIDERS: ADMIT Internal Medicine; ATTEND Internal Medicine
DX: A41.9 Sepsis, unspecified organism (principal); J10.1 Influenza due to other identified influenza virus with other respiratory manifestations; E87.6 Hypokalemia; J42 Unspecified chronic bronchitis; J45.909 Unspecified asthma, uncomplicated; R09.02 Hypoxemia; Z82.49 Family history of ischemic heart disease and other diseases of the circulatory system; Z87.891 Personal history of nicotine dependence
CPT/HCPCS: 36415; 71010; 80048; 81025; 85007; 85027; 87040; 87205; 87804; 93005; 94250; 94640; 94760; 96374; 96375; J0690; J0696; J2270; J2405; J7512; J7620; 99285-25

== ENCOUNTER 2017-02-08 20:48 | Emergency (ER) | payer OTHER ==
[~2017-02-08] VITALS: Ht 157.5 cm; Wt 45.4 kg
[2017-02-08 20:52] VITALS: BP 95/54
[2017-02-08] MEDS ORDERED: LIDOCAINE 2% 20 ML VIAL. IJ ONE (21:15)
--- NOTE | 2017-02-08 21:49 | PHYS DOC ---
Past Medical History Past Medical History: No Pertinent History, Bronchitis Past Surgical History: No Surgical History Alcohol Use: None Drug Use: Cocaine, Marijuana Adult General Chief Complaint Chief Complaint: LACERATION/AVULSION HPI HPI Patient is a 21 year old female who presents with right thumb laceration. Patient states she got cut by a mirror while taking a selfie. She is left- handed. Review of Systems Review of Systems Constitutional: Denies fever or chills [] Eyes: Denies change in visual acuity, redness, or eye pain [] HENT: Denies nasal congestion or sore throat [] Musculoskeletal: Denies back pain or joint pain [] Integument: Left thumb laceration Neurologic: Denies headache, focal weakness or sensory changes [] Endocrine: Denies polyuria or polydipsia [] Current Medications Current Medications Current Medications Medications (Trade) Dose Ordered Sig/Alireza Start Time Stop Time Status Last Admin Dose Admin Lidocaine HCl 20 ml 1X ONCE 02/08/17 21:15 02/08/17 21:16 DC 02/08/17 21:21 20 ML Allergies Allergies Allergies Coded Allergies Type Severity Reaction Last Updated Verified No Known Drug Allergies 08/19/16 No Physical Exam Physical Exam Constitutional: Well developed, well nourished, no acute distress, non-toxic appearance. [] Skin: left thumb thenar eminence with a V shaped laceration approx. 3 cm long, there is no tendon involvement. Full range of motion to the left hand. +2 left radial pulse. Adequate radial medial and ulnar sensation to the left hand. Cap refill less than 2 seconds the left fingers. Back: No tenderness, no CVA tenderness. [] Extremities: No tenderness, no cyanosis, no clubbing, ROM intact, no edema. [] Neurologic: Alert and oriented X 3, normal motor function, normal sensory function, no focal deficits noted. [] Psychologic: Affect normal, judgement normal, mood normal. [] Current Patient Data Vital Signs Vital Signs Date Time Temp Pulse Resp B/P (MAP) Pulse Ox O2 Delivery O2 Flow Rate FiO2 02/08/17 20:52 98.6 74 16 97 Room Air 98.6 EKG EKG [] Radiology/Procedures Radiology/Procedures Indication: Left thumb laceration Procedure: The patient was placed in the appropriate position and anesthesia around the laceration was 1% buffered lidocaine. The laceration was explored for foreign objects, none were found. The laceration was cleaned with the 100 ML of normal saline and Betadine. It was closed with 5 interrupted sutures using 4. 0 Prolene. The wound was covered with nonstick dressing.. Total repaired wound length: Approximately 3 cm long Other Items:none The patient tolerated the procedure well Complications:none Course & Med Decision Making Course & Med Decision Making Pertinent Labs and Imaging studies reviewed. (See chart for details) [] Dragon Disclaimer Dragon Disclaimer This electronic medical record was generated, in whole or in part, using a voice recognition dictation system. Departure Departure Impression: Primary Impression: Laceration of right hand Disposition: HOME, SELF-CARE Condition: STABLE Referrals: NO PCP (PCP) follow up with the ER or your doctor in 7-10 days for suture removal Patient Instructions: Laceration Care, Adult, [id number] Additional Instructions: You were seen for right thumb laceration. Keep the area clean and dry. Apply Neosporin to the area twice a day. You can shower. Monitor the area for signs and symptoms of infection including but no limited to increased redness, warmth or odor drainage from the area and return to the ED if they occur. Take Tylenol / Motrin as needed for pain. Problem Qualifiers Primary Impression: Laceration of right hand Encounter type: initial encounter Foreign body presence: without foreign body Qualified Codes: S61.411A - Laceration without foreign body of right hand , initial encounter MUNDO SOTELO APRN Feb 08, 2017 21:49
== END 2017-02-08 21:54 | disposition home or self-care (01) ==
LOC: ER 20:48
DX: S61.012A Laceration without foreign body of left thumb without damage to nail, initial encounter (principal); F14.10 Cocaine abuse, uncomplicated; F12.10 Cannabis abuse, uncomplicated; W25.XXXA Contact with sharp glass, initial encounter; Y93.89 Activity, other specified; Y92.89 Other specified places as the place of occurrence of the external cause; Y99.8 Other external cause status
CPT/HCPCS: 12002; 99283; J2001

== ENCOUNTER 2017-02-13 12:52 | Emergency (ER) | payer OTHER ==
[~2017-02-13] VITALS: Ht 157.5 cm; Wt 45.4 kg
[2017-02-13 13:01] VITALS: BP 117/68
--- NOTE | 2017-02-13 13:11 | PHYS DOC ---
Past Medical History Past Medical History: No Pertinent History, Bronchitis Past Surgical History: No Surgical History Alcohol Use: None Drug Use: Cocaine, Marijuana Adult General Chief Complaint Chief Complaint: WOUND CHECK [facility] HPI Patient is a 21 year old female presents to the emergency department stating that she had stitches placed in her right first metacarpal area on 02/08. Patient returns today stating that it's had some bleeding and drainage coming from the site and tenderness around the area. She denies any fever, chills or any nausea vomiting. She thinks she may have hit the hand on something earlier today causing it to bleed. She states I do not want anymore stitches. She states she's been having pain and discomfort since the stitches have been placed. She states that she has tried ibuprofen 800 mg without any relief. Review of Systems Review of Systems Constitutional: Denies fever or chills [] Eyes: Denies change in visual acuity, redness, or eye pain [] HENT: Denies nasal congestion or sore throat [] Respiratory: Denies cough or shortness of breath [] Cardiovascular: No additional information not addressed in HPI [] GI: Denies abdominal pain, nausea, vomiting, bloody stools or diarrhea [] : Denies dysuria or hematuria [] Musculoskeletal: Denies back pain or joint pain [] Integument: Denies rash or skin lesions. Bleeding from the suture site, redness around the sutured area Neurologic: Denies headache, focal weakness or sensory changes [] Endocrine: Denies polyuria or polydipsia [] Current Medications Current Medications Current Medications Medications (Trade) Dose Ordered Sig/[facility] Start Time Stop Time Status Last Admin Dose Admin Acetaminophen (Tylenol) 650 mg 1X ONCE 02/13/17 13:15 02/13/17 13:16 02/13/17 13:13 650 MG Neomycin/ Polymyxin/ Bacitracin (Triple Antibiotic Ointment) 1 pkt 1X ONCE 02/13/17 13:15 02/13/17 13:16 02/13/17 13:13 1 PKT Allergies Allergies Allergies Coded Allergies Type Severity Reaction Last Updated Verified No Known Drug Allergies 08/19/16 No Physical Exam Physical Exam Constitutional: Well developed, well nourished, no acute distress, non-toxic appearance. [] HENT: Normocephalic, atraumatic, bilateral external ears normal, oropharynx moist, no oral exudates, nose normal. [] Eyes: PERRLA, EOMI, conjunctiva normal, no discharge. [] Neck: Normal range of motion, no tenderness, supple, no stridor. [] Cardiovascular:Heart rate regular rhythm, no murmur [] Lungs & Thorax: Bilateral breath sounds clear to auscultation [] Skin: Warm, dry, no erythema, no rash. Patient with sutures noted in the first metacarpal area on the right hand approximately 5 sutures noted they are intact. She does have drainage discharge noted around the area that appeared red in color. She does appear to have redness noted around the area. Back: No tenderness Extremities: No tenderness, no cyanosis, no clubbing, ROM intact, no edema. [] Neurologic: Alert and oriented X 3, normal motor function, normal sensory function, no focal deficits noted. [] Psychologic: Affect normal, judgement normal, mood normal. [] Current Patient Data Vital Signs Vital Signs Date Time Temp Pulse Resp B/P (MAP) Pulse Ox O2 Delivery O2 Flow Rate FiO2 02/13/17 13:01 98.4 72 20 97 Room Air 98.4 EKG EKG [] Radiology/Procedures Radiology/Procedures [] Course & Med Decision Making Course & Med Decision Making Pertinent Labs and Imaging studies reviewed. (See chart for details) Area will be cleaned with soap and water and antibiotic ointment and dressing placed over the area. Patient will be placed on Bactrim. She was recommended to keep the area clean and dry and clean the site twice a day with soap and water and apply a antibiotic ointment. Patient was encouraged to return back to have her sutures removed at the appropriate time she was told. Recommended Tylenol or ibuprofen for pain and discomfort elevation as much as possible. Patient agrees with discharge instructions, treatment regimens and follow-up recommendations. [] Dragon Disclaimer Dragon Disclaimer This electronic medical record was generated, in whole or in part, using a voice recognition dictation system. Departure Departure Impression: Primary Impression: Wound infection Disposition: HOME, SELF-CARE Condition: STABLE Referrals: NO PCP (PCP) Patient Instructions: Wound Infection, [id number] Additional Instructions: Keep the area clean and dry. Clean the site twice daily with soap and water and apply antibiotic ointment to the area. Tylenol or ibuprofen for pain and discomfort. Antibiotics as prescribed. Elevation as much as possible. Follow-up with your primary care physician for any further pain or issues with discomfort. Return back to emergency department for suture removal. Return back to emergency department as needed for signs and symptoms of become worse. Scripts Sulfamethoxazole/Trimethoprim (BACTRIM DS TABLET) 1 Each Tablet 1 TAB PO BID, #20 TAB Prov: LUKASZ SOLORZANO APRN 02/13/17 LUKASZ SOLORZANO APRN Feb 13, 2017 13:11
[2017-02-13] MEDS ORDERED: ACETAMINOPHEN 325 MG TABLET. PO ONE (13:15)
[2017-02-13] MEDS ORDERED: NEOMY/BACITR/POLYMYXIN OINT PACKET. TP ONE (13:15)
[2017-02-13] MEDS ORDERED: SULF1TAB24 PO (13:17)
== END 2017-02-13 13:24 | disposition home or self-care (01) ==
LOC: ER 12:52
DX: T81.4XXA Infection following a procedure, initial encounter (principal); F14.10 Cocaine abuse, uncomplicated; F12.10 Cannabis abuse, uncomplicated; Y83.8 Other surgical procedures as the cause of abnormal reaction of the patient, or of later complication, without mention of misadventure at the time of the procedure; Y92.89 Other specified places as the place of occurrence of the external cause
CPT/HCPCS: 99283

== ENCOUNTER 2017-02-27 18:06 | Emergency (ER) | payer OTHER ==
[2017-02-27 18:30] VITALS: BP 93/54
--- NOTE | 2017-02-27 18:39 | PHYS DOC ---
Past Medical History Past Medical History: No Pertinent History, Bronchitis Past Surgical History: No Surgical History Alcohol Use: None Drug Use: Cocaine, Marijuana Adult General Chief Complaint Chief Complaint: SUTURE/STAPLE REMOVAL [facility] HPI Patient is a 21 year old female presents to the emergency partner stating that she needs to have sutures removed out of her right thumb. She had these placed on 02/08. She denies any drainage discharge or odor coming from the site denies any fever, chills or any nausea vomiting. Edges of the wound appeared to be approximated well. Review of Systems Review of Systems Constitutional: Denies fever or chills [] Eyes: Denies change in visual acuity, redness, or eye pain [] HENT: Denies nasal congestion or sore throat [] Respiratory: Denies cough or shortness of breath [] Cardiovascular: No additional information not addressed in HPI [] GI: Denies abdominal pain, nausea, vomiting, bloody stools or diarrhea [] : Denies dysuria or hematuria [] Musculoskeletal: Denies back pain or joint pain [] Integument: Denies rash or skin lesions. Presents to the emergency department for suture removal right thumb Neurologic: Denies headache, focal weakness or sensory changes [] Endocrine: Denies polyuria or polydipsia [] Allergies Allergies Allergies Coded Allergies Type Severity Reaction Last Updated Verified No Known Drug Allergies 08/19/16 No Physical Exam Physical Exam Constitutional: Well developed, well nourished, no acute distress, non-toxic appearance. [] HENT: Normocephalic, atraumatic, bilateral external ears normal, oropharynx moist, no oral exudates, nose normal. [] Eyes: PERRLA, EOMI, conjunctiva normal, no discharge. [] Cardiovascular:Heart rate regular rhythm Lungs & Thorax: No respiratory distress noted Skin: Warm, dry, no erythema, no rash. Patient with 4 sutures that appear to be intact with no drainage or discharge noted around the area. Wound appears to be approximated well. Extremities: No tenderness, no cyanosis, no clubbing, ROM intact, no edema. [] Neurologic: Alert and oriented X 3, normal motor function, normal sensory function, no focal deficits noted. [] Psychologic: Affect normal, judgement normal, mood normal. [] EKG EKG [] Radiology/Procedures Radiology/Procedures [] Course & Med Decision Making Course & Med Decision Making Pertinent Labs and Imaging studies reviewed. (See chart for details) 4 sutures removed without difficulty. Patient was provided with discharge instructions, treatment regimens and follow-up recommendations. Recommended patient to follow up with primary care physician as needed for any signs symptoms of infection. Continue to wash area with soap and water and apply antibiotic ointment. Patient be discharged home in stable condition. All questions and concerns resents to the patient's bedside. [] Dragon Disclaimer Dragon Disclaimer This electronic medical record was generated, in whole or in part, using a voice recognition dictation system. Departure Departure Impression: Primary Impression: Visit for suture removal Disposition: HOME, SELF-CARE Condition: STABLE Referrals: NO PCP (PCP) Patient Instructions: Suture Removal-Brief Additional Instructions: Keep the area clean and dry. Clean the site with soap and water and apply antibiotic ointment to the area twice a day. Continue to watch for signs and symptoms of infection: Redness, warmth, tenderness or any yellow/greenish drainage of a come from the site. If this should occur follow-up to primary care physician immediately. Return back to emergency department sign symptoms of become worse. Follow-up to primary care physician as needed. LUKASZ SOLORZANO [employer] Feb 27, 2017 18:39
== END 2017-02-27 19:00 | disposition home or self-care (01) ==
LOC: ER 18:06
DX: S61.011D Laceration without foreign body of right thumb without damage to nail, subsequent encounter (principal); X58.XXXD Exposure to other specified factors, subsequent encounter
CPT/HCPCS: 99281

== ENCOUNTER 2017-08-26 19:06 | Emergency (ER) | payer OTHER ==
[2017-08-26] MEDS: ACETAMINOPHEN 500 MG TABLET PO ×2 (20:41)
[2017-08-26] MEDS: ONDANSETRON ODT 4 MG TAB.RAPDIS. PO ×2 (20:41)
[2017-08-26 20:50] LABS: INFLUENZA A PATIENT NEGATIVE (NEGATIVE)
[2017-08-26 20:51] LABS: INFLUENZA B PATIENT POSITIVE (NEGATIVE); OBC FLU VALID
== END 2017-08-26 20:42 | disposition home or self-care (01) ==
LOC: ER 19:06
DX: J10.1 Influenza due to other identified influenza virus with other respiratory manifestations (principal); R11.2 Nausea with vomiting, unspecified; R05 Cough; F14.10 Cocaine abuse, uncomplicated; F12.10 Cannabis abuse, uncomplicated; R51 Headache
CPT/HCPCS: 87804; 87804-59; 99284; Q0162

== ENCOUNTER 2018-01-23 13:50 | Emergency (ER) | payer OTHER ==
[2018-01-23] MEDS: LIDOCAINE/EPI/TETRACAINE TOPICAL GEL 3 ML. TP (14:08)
[2018-01-23] MEDS: LIDOCAINE WITH 8.4% SOD BICARB 3 ML DISP.SYRIN. INJ (14:08)
== END 2018-01-23 15:01 | disposition home or self-care (01) ==
LOC: ER 15:01
DX: S61.216A Laceration without foreign body of right little finger without damage to nail, initial encounter (principal); W26.8XXA Contact with other sharp object(s), not elsewhere classified, initial encounter; Y93.89 Activity, other specified; Y99.8 Other external cause status; Y92.89 Other specified places as the place of occurrence of the external cause
CPT/HCPCS: 12001; 99283-25

== ENCOUNTER 2018-02-09 07:32 | Emergency (ER) | payer OTHER ==
[2018-02-09] MEDS ORDERED: NEOMY/BACITR/POLYMYXIN OINT PACKET. TP (07:45)
[2018-02-09] MEDS: NEOMY/BACITR/POLYMYXIN OINT PACKET. TP (07:47)
== END 2018-02-09 07:53 | disposition home or self-care (01) ==
LOC: ER 07:32
DX: S61.216D Laceration without foreign body of right little finger without damage to nail, subsequent encounter (principal); X58.XXXD Exposure to other specified factors, subsequent encounter
CPT/HCPCS: 99282

== ENCOUNTER 2018-07-20 17:18 | Emergency (ER) | payer SELFPAY ==
[~2018-07-20] VITALS: Ht 157.5 cm; Wt 46.7 kg
[~2018-07-20 17:18] MED LIST changes: +ACET325T9 PO; +IBUP-1007 PO; +ONDA4TAB10 SL; +OSEL75CA PO
[2018-07-20] MEDS ORDERED: ONDANSETRON PF 4 MG/2 ML VIAL. IV ONE (17:45)
[2018-07-20 17:50] VITALS: BP 104/59
--- NOTE | 2018-07-20 17:50 | PHYS DOC ---
Past Medical History Past Medical History: No Pertinent History, Bronchitis Past Surgical History: No Surgical History Alcohol Use: None Drug Use: Cocaine, Marijuana Adult General Chief Complaint Chief Complaint: ABDOMINAL PAIN HPI HPI Patient is a 22 year old female who presents with generalized mid abdominal pain for last week. Patient states she's also had nausea and vomiting at any point in the day with sharp pains don't radiate. Patient states that the nausea just hits and she throws up and feels better. Patient states she had the sharp pains and when she does get these pains she uses a heating pad and helps take away the pains. Patient denies diarrhea or fever and took a laxative 2 days ago because she was having some constipation. Patient states that she had a bowel movement everything came out "smoothly". She states she smokes marijuana every other day. Denies alcohol abuse or other drugs. Review of Systems Review of Systems Constitutional: Denies fever or chills [] Eyes: Denies change in visual acuity, redness, or eye pain [] HENT: Denies nasal congestion or sore throat [] Respiratory: Denies cough or shortness of breath [] Cardiovascular: No additional information not addressed in HPI [] GI: generalized mid abdominal pain, nausea, vomiting, denies bloody stools or diarrhea [] : Denies dysuria or hematuria [] Musculoskeletal: Denies back pain or joint pain [] Integument: Denies rash or skin lesions [] Neurologic: Denies headache, focal weakness or sensory changes [] All other systems were reviewed and found to be within normal limits, except as documented in this note. Current Medications Current Medications Current Medications Medications (Trade) Dose Ordered Sig/Alireza Start Time Stop Time Status Last Admin Dose Admin Azithromycin (Zithromax) 1,000 mg 1X ONCE 07/20/18 18:30 07/20/18 18:31 DC 07/20/18 18:46 1,000 MG Ceftriaxone Sodium (Rocephin Im) 250 mg 1X ONCE 07/20/18 18:30 07/20/18 18:31 DC 07/20/18 18:52 250 MG Fentanyl Citrate (Fentanyl 2ml Vial) 50 mcg 1X ONCE 07/20/18 18:00 07/20/18 18:01 DC Lidocaine HCl (Xylocaine-Mpf 1% 2ml Vial) 2 ml STK-MED ONCE 07/20/18 18:35 07/20/18 18:37 DC Ondansetron HCl (Zofran) 4 mg 1X ONCE 07/20/18 17:45 07/20/18 17:46 DC 07/20/18 18:08 4 MG Sodium Chloride 1,000 ml @ 1,000 mls/hr 1X ONCE 07/20/18 18:00 07/20/18 18:59 DC 07/20/18 18:08 1,000 MLS/HR Allergies Allergies Allergies Coded Allergies Type Severity Reaction Last Updated Verified No Known Drug Allergies 08/19/16 No Physical Exam Physical Exam Constitutional: Well developed, well nourished, no acute distress, non-toxic appearance. [] HENT: Normocephalic, atraumatic, bilateral external ears normal, oropharynx moist, no oral exudates, nose normal. [] Eyes: PERRLA, EOMI, conjunctiva normal, no discharge. [] Neck: Normal range of motion, no tenderness, supple, no stridor. [] Cardiovascular:Heart rate regular rhythm, no murmur [] Lungs & Thorax: Bilateral breath sounds clear to auscultation [] Abdomen: Bowel sounds normal, soft, Left mid tenderness, no masses, no pulsatile masses. [] Skin: Warm, dry, no erythema, no rash. [] Back: No tenderness, no CVA tenderness. [] Extremities: No tenderness, no cyanosis, no clubbing, ROM intact, no edema. [] Neurologic: Alert and oriented X 3, normal motor function, normal sensory function, no focal deficits noted. [] Psychologic: Affect normal, judgement normal, mood normal. [] Current Patient Data Vital Signs Vital Signs Date Time Temp Pulse Resp B/P (MAP) Pulse Ox O2 Delivery O2 Flow Rate FiO2 07/20/18 17:50 98.5 54 16 104/59 (74) 100 Room Air 98.5 Lab Values Laboratory Tests Test 07/20/18 18:00 07/20/18 18:52 07/20/18 18:56 White Blood Count 8.8 x10^3/uL (4.0-11.0) Red Blood Count 3.95 x10^6/uL (3.50-5.40) Hemoglobin 11.5 g/dL (12.0-15.5) L Hematocrit 32.8 % (36.0-47.0) L Mean Corpuscular Volume 83 fL (79-100) Mean Corpuscular Hemoglobin 29 pg (25-35) Mean Corpuscular Hemoglobin Concent 35 g/dL (31-37) Red Cell Distribution Width 13.3 % (11.5-14.5) Platelet Count 186 x10^3/uL (140-400) Neutrophils (%) (Auto) 71 % (31-73) Lymphocytes (%) (Auto) 18 % (24-48) L Monocytes (%) (Auto) 8 % (0-9) Eosinophils (%) (Auto) 2 % (0-3) Basophils (%) (Auto) 0 % (0-3) Neutrophils # (Auto) 6.3 x10^3uL (1.8-7.7) Lymphocytes # (Auto) 1.6 x10^3/uL (1.0-4.8) Monocytes # (Auto) 0.7 x10^3/uL (0.0-1.1) Eosinophils # (Auto) 0.2 x10^3/uL (0.0-0.7) Basophils # (Auto) 0.0 x10^3/uL (0.0-0.2) Maternal Serum HCG Beta Subunit 183153 mIU/mL (0-5) H Sodium Level 138 mmol/L (136-145) Potassium Level 3.3 mmol/L (3.5-5.1) L Chloride Level 103 mmol/L (98-107) Carbon Dioxide Level 23 mmol/L (21-32) Anion Gap 12 (6-14) Blood Urea Nitrogen 7 mg/dL (7-20) Creatinine 0.5 mg/dL (0.6-1.0) L Estimated GFR (Cockcroft-Gault) 183.4 BUN/Creatinine Ratio 14 (6-20) Glucose Level 80 mg/dL (70-99) Calcium Level 9.1 mg/dL (8.5-10.1) Total Bilirubin 0.3 mg/dL (0.2-1.0) Aspartate Amino Transferase (AST) 16 U/L (15-37) Alanine Aminotransferase (ALT) 18 U/L (14-59) Alkaline Phosphatase 36 U/L (46-116) L Total Protein 7.4 g/dL (6.4-8.2) Albumin 3.2 g/dL (3.4-5.0) L Albumin/Globulin Ratio 0.8 (1.0-1.7) L Urine Collection Type Unknown Urine Color Yellow Urine Clarity Clear Urine pH 7.5 Urine Specific [place] 1.020 Urine Protein Negative mg/dL (NEG-TRACE) Urine Glucose (UA) Negative mg/dL (NEG) Urine Ketones (Stick) 15 mg/dL (NEG) Urine Blood Negative (NEG) Urine Nitrite Negative (NEG) Urine Bilirubin Negative (NEG) Urine Urobilinogen Dipstick 0.2 mg/dL (0.2 mg/dL) Urine Leukocyte Esterase Negative (NEG) Urine RBC 0 /HPF (0-2) Urine WBC 1-4 /HPF (0-4) Urine Squamous Epithelial Cells Few /LPF Urine Bacteria 0 /HPF (0-FEW) Urine Mucus Mod /LPF POC Urine HCG, Qualitative Hcg positive (Negative) Laboratory Tests 07/20/18 18:00 Laboratory Tests 07/20/18 18:00 Microbiology 07/20/18 Wet Prep - Final, Complete Laboratory Tests Test 07/20/18 18:00 07/20/18 18:52 07/20/18 18:56 White Blood Count 8.8 x10^3/uL (4.0-11.0) Red Blood Count 3.95 x10^6/uL (3.50-5.40) Hemoglobin 11.5 g/dL (12.0-15.5) L Hematocrit 32.8 % (36.0-47.0) L Mean Corpuscular Volume 83 fL (79-100) Mean Corpuscular Hemoglobin 29 pg (25-35) Mean Corpuscular Hemoglobin Concent 35 g/dL (31-37) Red Cell Distribution Width 13.3 % (11.5-14.5) Platelet Count 186 x10^3/uL (140-400) Neutrophils (%) (Auto) 71 % (31-73) Lymphocytes (%) (Auto) 18 % (24-48) L Monocytes (%) (Auto) 8 % (0-9) Eosinophils (%) (Auto) 2 % (0-3) Basophils (%) (Auto) 0 % (0-3) Neutrophils # (Auto) 6.3 x10^3uL (1.8-7.7) Lymphocytes # (Auto) 1.6 x10^3/uL (1.0-4.8) Monocytes # (Auto) 0.7 x10^3/uL (0.0-1.1) Eosinophils # (Auto) 0.2 x10^3/uL (0.0-0.7) Basophils # (Auto) 0.0 x10^3/uL (0.0-0.2) Sodium Level 138 mmol/L (136-145) Potassium Level 3.3 mmol/L (3.5-5.1) L Chloride Level 103 mmol/L (98-107) Carbon Dioxide Level 23 mmol/L (21-32) Anion Gap 12 (6-14) Blood Urea Nitrogen 7 mg/dL (7-20) Creatinine 0.5 mg/dL (0.6-1.0) L Estimated GFR (Cockcroft-Gault) 183.4 BUN/Creatinine Ratio 14 (6-20) Glucose Level 80 mg/dL (70-99) Calcium Level 9.1 mg/dL (8.5-10.1) Total Bilirubin 0.3 mg/dL (0.2-1.0) Aspartate Amino Transferase (AST) 16 U/L (15-37) Alanine Aminotransferase (ALT) 18 U/L (14-59) Alkaline Phosphatase 36 U/L (46-116) L Total Protein 7.4 g/dL (6.4-8.2) Albumin 3.2 g/dL (3.4-5.0) L Albumin/Globulin Ratio 0.8 (1.0-1.7) L Urine Collection Type Unknown Urine Color Yellow Urine Clarity Clear Urine pH 7.5 Urine Specific [place] 1.020 Urine Protein Negative mg/dL (NEG-TRACE) Urine Glucose (UA) Negative mg/dL (NEG) Urine Ketones (Stick) 15 mg/dL (NEG) Urine Blood Negative (NEG) Urine Nitrite Negative (NEG) Urine Bilirubin Negative (NEG) Urine Urobilinogen Dipstick 0.2 mg/dL (0.2 mg/dL) Urine Leukocyte Esterase Negative (NEG) Urine RBC 0 /HPF (0-2) Urine WBC 1-4 /HPF (0-4) Urine Squamous Epithelial Cells Few /LPF Urine Bacteria 0 /HPF (0-FEW) Urine Mucus Mod /LPF POC Urine HCG, Qualitative Hcg positive (Negative) Laboratory Tests 07/20/18 18:00 Laboratory Tests 07/20/18 18:00 Microbiology 07/20/18 Wet Prep - Final, Complete EKG EKG [] Radiology/Procedures Radiology/Procedures Pelvic US Impressions: [facility] [address] [place] [address] IMAGING REPORT Signed PATIENT: HESHAM MEADE ACCOUNT: [id number] : 1995 LOCATION: ER AGE: 22 SEX: F EXAM STATUS: REG ER ORD. PHYSICIAN: LUKASZ SANTAMARIA APRN REASON: Intermittent pelvic pain PROCEDURE: PREG 1ST TRIMESTER EXAM: OBSTETRIC ULTRASOUND <14 WEEKS. HISTORY: Pelvic pain in . FINDINGS: Sonographic evaluation of the pelvis was performed transabdominally and transvaginally. The uterus is anteverted and measures 10.0 x 8.9 x 6.9 cm. A single intrauterine gestation measures 8 weeks 2 days based on crown-rump length 1.7 cm. heart rate is 158 bpm. A yolk sac is visualized. There is no subchorionic collection. The gestational sac is regular. The right ovary measures 2.2 x 1.8 x 1.7 cm. The left ovary measures 3.2 x 1.9 x 1.6 cm. There are no suspicious lesions. There is normal flow bilaterally. There is no adnexal mass. There is no significant free fluid. IMPRESSION: 1. Single intrauterine gestation measuring 8 weeks 2 days. heart rate 158 bpm. Electronically signed by: Sharifa Patton MD (07/20/2018 7:48 PM) [facility] DICTATED and SIGNED BY: FARIDA PATTON MD DATE: 07/20/18 194 Course & Med Decision Making Course & Med Decision Making Patient is a 22 year old female who presents with generalized mid abdominal pain for last week. Patient states she's also had nausea and vomiting at any point in the day with sharp pains don't radiate. Patient states that the nausea just hits and she throws up and feels better. Patient states she had the sharp pains and when she does get these pains she uses a heating pad and helps take away the pains. Patient denies diarrhea or fever and took a laxative 2 days ago because she was having some constipation. Patient states that she had a bowel movement everything came out "smoothly". She states she smokes marijuana every other day. Denies alcohol abuse or other drugs. Alert and oriented. Skin pink warm and dry. She rates her pain a 6 out of 10. He has been pains are moist. She is ambulatory with a steady gait. Afebrile. Vital signs are within normal limits. Patient denies dysuria or frequency. Patient denies shortness of breath or chest pain or body aches or fever. She states that she has no vaginal discharge or abnormal vaginal bleeding. Last menstrual period was right around [place]. Patient states usually she gets menstrual cramps that are pretty bad and the heating pad takes them away. Patient states she does not think she has any STD worries but agrees to a pelvic exam and be tested. Patient is given pain medication, nausea medication and fluids. Patient is treated prophylactically for STD's. Positive for . US shows 8weeks 2 day gestation and a heart rate at 158. Wet prep normal. Blood work unremarkable. O+. Pelvic Exam: Radio Engineer present Abdomen: Nontender External Genitalia: Normal Skin Speculum: Normal vaginal mucosa, White cervical discharge Bimanual: No adnexal masses or tenderness, No CMT Staff Physician Addendum: I was working in the ER during the course of this patient's visit. I was available for consultation as needed, but I was not directly involved in the care of this patient. Dragon Disclaimer Dragon Disclaimer This electronic medical record was generated, in whole or in part, using a voice recognition dictation system. Departure Departure Impression: Primary Impression: Abdominal pain during Additional Impression: Disposition: 01 HOME, SELF-CARE Condition: STABLE Referrals: NO PCP (PCP) JOSE LIRA Jr, MD Patient Instructions: ABCs of , Abdominal Pain During Additional Instructions: Follow up with OB. Only take Tylenol for pain. Drink plenty of fluids. Stop marijuana use and do not drink alcohol. Start taking vitamins. Problem Qualifiers Primary Impression: Abdominal pain during Trimester: first trimester Qualified Codes: O26.891 - Other specified related conditions, first trimester; R10.9 - Unspecified abdominal pain Additional Impression: Weeks of gestation: 8 weeks Qualified Codes: Z3A.08 - 8 weeks gestation of BAFUS,LUKASZ M CONSOLE OPERATOR Jul 20, 2018 17:50 NAIDA HART MD Jul 21, 2018 06:51
[2018-07-20] MEDS ORDERED: fentaNYL PF VIAL 100 MCG/2 ML VIAL IV ONE (18:00)
[2018-07-20] MEDS ORDERED: IV NORMAL SALINE 1000ML BAG 1,000 ML IV ONE (18:00)
[2018-07-20 18:16] LABS: BASO % 0 % (0-3); EOS # 0.2 x10^3/uL (0.0-0.7); EOS % 2 % (0-3); HEMATOCRIT 32.8 % (36.0-47.0); HEMOGLOBIN 11.5 g/dL (12.0-15.5); LYMPH # 1.6 x10^3/uL (1.0-4.8); LYMPH % 18 % (24-48); MEAN CORPUSCULAR HEMOGLOBIN 29 pg (25-35); MEAN CORPUSCULAR HGB CONC 35 g/dL (31-37); MEAN CORPUSCULAR VOLUME 83 fL (79-100); MONO # 0.7 x10^3/uL (0.0-1.1); MONO % 8 % (0-9); NEUT # 6.3 x10^3uL (1.8-7.7); NEUT % 71 % (31-73); PLATELET COUNT 186 x10^3/uL (140-400); RED BLOOD COUNT 3.95 x10^6/uL (3.50-5.40); RED CELL DISTRIBUTION WIDTH 13.3 % (11.5-14.5); WHITE BLOOD COUNT 8.8 x10^3/uL (4.0-11.0)
[2018-07-20] MEDS ORDERED: cefTRIAXone IM 250 MG VIAL IM ONE (18:30)
[2018-07-20] MEDS ORDERED: AZITHROMYCIN 250 MG TABLET. PO ONE (18:30)
[2018-07-20] MEDS ORDERED: LIDOCAINE 1% PF 2 ML VIAL. ONE (18:35)
[2018-07-20 18:37] LABS: CALCIUM 9.1 mg/dL (8.5-10.1); CREATININE 0.5 mg/dL (0.6-1.0); GFR 183.4; POTASSIUM 3.3 mmol/L (3.5-5.1)
[2018-07-20 18:45] LABS: ALBUMIN 3.2 g/dL (3.4-5.0); ALBUMIN/GLOBULIN RATIO 0.8 (1.0-1.7); TOTAL BILIRUBIN 0.3 mg/dL (0.2-1.0); TOTAL PROTEIN 7.4 g/dL (6.4-8.2)
[2018-07-20 19:02] LABS: BILIRUBIN,URINE NEGATIVE (NEG); CLARITY,URINE CLEAR; COLOR,URINE YELLOW; NITRITE,URINE NEGATIVE (NEG); PH,URINE 7.5; PROTEIN,URINE NEGATIVE (NEG-TRACE); UROBILINOGEN,URINE 0.2 mg/dL (0.2 mg/dL)
[2018-07-20 19:08] LABS: BACTERIA,URINE 0 /HPF (0-FEW); RBC,URINE 0 /HPF (0-2); SQUAMOUS EPITHELIAL CELL,UR FEW /LPF
--- NOTE | 2018-07-20 19:52 | RAD ---
EXAM: OBSTETRIC ULTRASOUND <14 WEEKS. HISTORY: Pelvic pain in . FINDINGS: Sonographic evaluation of the pelvis was performed transabdominally and transvaginally. The uterus is anteverted and measures 10.0 x 8.9 x 6.9 cm. A single intrauterine gestation measures 8 weeks 2 days based on crown-rump length 1.7 cm. heart rate is 158 bpm. A yolk sac is visualized. There is no subchorionic collection. The gestational sac is regular. The right ovary measures 2.2 x 1.8 x 1.7 cm. The left ovary measures 3.2 x 1.9 x 1.6 cm. There are no suspicious lesions. There is normal flow bilaterally. There is no adnexal mass. There is no significant free fluid. IMPRESSION: 1. Single intrauterine gestation measuring 8 weeks 2 days. heart rate 158 bpm. Electronically signed by: Sharifa Patton MD (07/20/2018 7:48 PM) [facility]
[2018-07-22 13:23] LABS: GC PROBE Negative (Negative)
== END 2018-07-20 20:10 | disposition home or self-care (01) ==
LOC: ER 17:18
DX: O21.8 Other vomiting complicating pregnancy (principal); R10.84 Generalized abdominal pain; K59.00 Constipation, unspecified; O99.321 Drug use complicating pregnancy, first trimester; Z3A.08 8 weeks gestation of pregnancy
CPT/HCPCS: 36415; 76801; 80053; 81001; 81025; 84702; 85025; 86850; 86900; 86901; 87491; 87591; 96361; 96372; 96374; 99284; J0696; J2405; J7030; Q0111; Q0144

== ENCOUNTER 2018-08-12 18:44 | Emergency (ER) | payer OTHER ==
[~2018-08-12] VITALS: Ht 157.5 cm; Wt 49.0 kg
[2018-08-12 19:05] VITALS: BP 112/59
[2018-08-12] MEDS ORDERED: SENN-121 PO (19:29)
[2018-08-12] MEDS ORDERED: POLY17PO29 PO (19:29)
[2018-08-12] MEDS ORDERED: ONDA4TAB12 PO (19:29)
--- NOTE | 2018-08-12 19:29 | PHYS DOC ---
Past Medical History Past Medical History: No Pertinent History Past Surgical History: No Surgical History Alcohol Use: None Drug Use: None Adult General Chief Complaint Chief Complaint: CONTISPATION HPI HPI Patient is a 22 year old [f__sex] who presents with [] Review of Systems Review of Systems Constitutional: Denies fever or chills [] Eyes: Denies change in visual acuity, redness, or eye pain [] HENT: Denies nasal congestion or sore throat [] Respiratory: Denies cough or shortness of breath [] Cardiovascular: No additional information not addressed in HPI [] GI: Denies abdominal pain, nausea, vomiting, bloody stools or diarrhea [] : Denies dysuria or hematuria [] Musculoskeletal: Denies back pain or joint pain [] Integument: Denies rash or skin lesions [] Neurologic: Denies headache, focal weakness or sensory changes [] Endocrine: Denies polyuria or polydipsia [] All other systems were reviewed and found to be within normal limits, except as documented in this note. Allergies Allergies Allergies Coded Allergies Type Severity Reaction Last Updated Verified No Known Drug Allergies 08/19/16 No Physical Exam Physical Exam Constitutional: Well developed, well nourished, no acute distress, non-toxic appearance. [] HENT: Normocephalic, atraumatic, bilateral external ears normal, oropharynx moist, no oral exudates, nose normal. [] Eyes: PERRLA, EOMI, conjunctiva normal, no discharge. [] Neck: Normal range of motion, no tenderness, supple, no stridor. [] Cardiovascular:Heart rate regular rhythm, no murmur [] Lungs & Thorax: Bilateral breath sounds clear to auscultation [] Abdomen: Bowel sounds normal, soft, no tenderness, no masses, no pulsatile masses. [] Skin: Warm, dry, no erythema, no rash. [] Back: No tenderness, no CVA tenderness. [] Extremities: No tenderness, no cyanosis, no clubbing, ROM intact, no edema. [] Neurologic: Alert and oriented X 3, normal motor function, normal sensory function, no focal deficits noted. [] Psychologic: Affect normal, judgement normal, mood normal. [] Current Patient Data Vital Signs Vital Signs Date Time Temp Pulse Resp B/P (MAP) Pulse Ox O2 Delivery O2 Flow Rate FiO2 08/12/18 19:05 98.4 68 16 112/59 (76) 100 Room Air 98.4 EKG EKG [] Radiology/Procedures Radiology/Procedures [] Course & Med Decision Making Course & Med Decision Making Pertinent Labs and Imaging studies reviewed. (See chart for details) [] Dragon Disclaimer Dragon Disclaimer This electronic medical record was generated, in whole or in part, using a voice recognition dictation system. Departure Departure Impression: Primary Impression: Constipation Additional Impressions: Nausea Disposition: HOME, SELF-CARE Condition: STABLE Referrals: NO PCP (PCP) FARIDA MERINO MD Patient Instructions: Constipation, Adult, [id number], Morning Sickness, Easy -to-Read, - First Trimester, [id number] Scripts Sennosides/Docusate Sodium (Colace 2-in-1 Tablet) 1 Each Tablet 1 EACH PO QHS, #30 TAB Prov: MARIBEL FERRELL DO 08/12/18 Ondansetron (ONDANSETRON ODT) 4 Mg Tab.rapdis 1 TAB PO PRN Q6-8HRS PRN for NAUSEA, #16 TAB Prov: MARIBEL FERRELL DO 08/12/18 Polyethylene Glycol 3350 (MIRALAX) 17 Gm Powd.pack 1 PACKET PO DAILY PRN for CONSTIPATION, #30 PACKET 0 Refills Prov: MARIBEL FERRELL DO 08/12/18 Problem Qualifiers Primary Impression: Constipation Constipation type: unspecified constipation type Qualified Codes: K59.00 - Constipation, unspecified Additional Impressions: Weeks of gestation: unspecified Qualified Codes: Z34.90 - Encounter for supervision of normal , unspecified, unspecified trimester MARIBEL FERRELL DO Aug 12, 2018 19:29
[2018-08-12] MEDS ORDERED: ONDANSETRON ODT 4 MG TAB.RAPDIS. PO ONE (19:30)
[2018-08-12 19:37] LABS: BILIRUBIN,URINE NEGATIVE (NEG); CLARITY,URINE CLEAR; COLOR,URINE YELLOW; NITRITE,URINE NEGATIVE (NEG); PH,URINE 6.5; PROTEIN,URINE NEGATIVE (NEG-TRACE)
[2018-08-12 19:39] LABS: U PREG PATIENT POSITIVE (NEG)
[2018-08-12 19:46] LABS: BACTERIA,URINE FEW /HPF (0-FEW); RBC,URINE OCC /HPF (0-2); SQUAMOUS EPITHELIAL CELL,UR MOD /LPF
== END 2018-08-12 19:37 | disposition home or self-care (01) ==
LOC: ER 18:44
DX: O26.891 Other specified pregnancy related conditions, first trimester (principal); K59.00 Constipation, unspecified; R11.0 Nausea
CPT/HCPCS: 81001; 81025; 87086; 99283; Q0162

== ENCOUNTER 2020-03-07 14:44 | Emergency (ER) | payer SELFPAY ==
[~2020-03-07] VITALS: Ht 157.5 cm; Wt 50.0 kg
[~2020-03-07 14:44] MED LIST changes: +ONDA4TAB12 PO; +POLY17PO29 PO; +SENN-121 PO
[2020-03-07 15:04] VITALS: BP 97/56
[2020-03-07 16:16] LABS: U PREG PATIENT POSITIVE (NEG)
[2020-03-07 16:18] LABS: BASO % 1 % (0-3); EOS # 0.3 x10^3/uL (0.0-0.7); EOS % 4 % (0-3); HEMATOCRIT 34.4 % (36.0-47.0); HEMOGLOBIN 11.7 g/dL (12.0-15.5); LYMPH # 1.6 x10^3/uL (1.0-4.8); LYMPH % 18 % (24-48); MEAN CORPUSCULAR HEMOGLOBIN 29 pg (25-35); MEAN CORPUSCULAR HGB CONC 34 g/dL (31-37); MEAN CORPUSCULAR VOLUME 86 fL (79-100); MONO # 0.6 x10^3/uL (0.0-1.1); MONO % 7 % (0-9); NEUT % 70 % (31-73); PLATELET COUNT 177 x10^3/uL (140-400); RED BLOOD COUNT 4.02 x10^6/uL (3.50-5.40); RED CELL DISTRIBUTION WIDTH 13.8 % (11.5-14.5); WHITE BLOOD COUNT 8.6 x10^3/uL (4.0-11.0)
[2020-03-07 16:20] LABS: BARBITURATES NEG (NEG); BENZODIAZEPINES NEG (NEG); CANNABINOIDS POS (NEG); COCAINE NEG (NEG); METHADONE NEG (NEG); OPIATES NEG (NEG); PHENCYCLIDINE NEG (NEG)
[2020-03-07 16:22] LABS: AMPHETAMINE/METHAMPHETAMINE NEG (NEG)
[2020-03-07 16:26] LABS: CALCIUM 8.5 mg/dL (8.5-10.1); CREATININE 0.6 mg/dL (0.6-1.0); GFR 146.2; POTASSIUM 3.5 mmol/L (3.5-5.1)
[2020-03-07 16:32] LABS: ALBUMIN 2.8 g/dL (3.4-5.0); ALBUMIN/GLOBULIN RATIO 0.7 (1.0-1.7); TOTAL BILIRUBIN 0.2 mg/dL (0.2-1.0); TOTAL PROTEIN 7.1 g/dL (6.4-8.2)
--- NOTE | 2020-03-07 16:40 | PHYS DOC ---
Past Medical History Past Medical History: No Pertinent History Past Surgical History: No Surgical History Smoking Status: Never Smoker Alcohol Use: None Drug Use: None General Adult EDM: Chief Complaint: MANIC BEHAVIOR HPI: HPI: 24-year-old female presents to the ED with complaints of " I need antidepressant medication," reports she has been feeling down a lot, has struggled with depression for the past year-it started during her last . At first she thought her symptoms were related to a sleep disorder and was prescribed melatonin at in December due to inability to sleep. Reports she smokes marijuana and cigarettes. Does not take any routine medications. ROS: Denies associated SI, HI, fever, chills, n/v/d/c, hallucinations, rash, abdominal pain, back pain, vaginal bleeding/abnormal discharge, neck stiffness, headache, sore throat, cough, chest pain, dyspnea, leg swelling, rash. Review of Systems: Review of Systems: Constitutional: Denies fever or chills. [] Eyes: Denies change in visual acuity. [] HENT: Denies nasal congestion or sore throat. [] Respiratory: Denies cough or shortness of breath. [] Cardiovascular: Denies chest pain or edema. [] GI: Denies abdominal pain, nausea, vomiting, bloody stools or diarrhea. [] : Denies dysuria. [] Musculoskeletal: Denies back pain or joint pain. [] Integument: Denies rash. [] Neurologic: Denies headache, focal weakness or sensory changes. [] Endocrine: Denies polyuria or polydipsia. [] Lymphatic: Denies swollen glands. [] Psychiatric: Denies depression or anxiety. [] Heart Score: Risk Factors: Risk Factors: DM, Current or recent (<one month) smoker, HTN, HLP, family history of CAD, obesity. Risk Scores: Score 0 - 3: 2.5% MACE over next 6 weeks - Discharge Home Score 4 - 6: 20.3% MACE over next 6 weeks - Admit for Clinical Observation Score 7 - 10: 72.7% MACE over next 6 weeks - Early Invasive Strategies Allergies: Allergies: Allergies Coded Allergies Type Severity Reaction Last Updated Verified No Known Drug Allergies 08/19/16 No Physical Exam: PE: Constitutional: Well developed, well nourished, no acute distress, non-toxic appearance. [] HENT: Normocephalic, atraumatic, bilateral external ears normal, Eyes: EOMI, conjunctiva normal, no discharge. [] Neck: Normal range of motion, no tenderness, supple, no stridor. [] Cardiovascular:Heart rate regular rhythm, no murmur [] Lungs & Thorax: Bilateral breath sounds clear to auscultation [] Abdomen: Bowel sounds normal, soft, no tenderness, no masses, no pulsatile masses. [] Skin: Warm, dry, no erythema, no rash. [] Back: No tenderness, no CVA tenderness. [] Extremities: No tenderness, no cyanosis, no clubbing, ROM intact, no edema. [] Neurologic: Alert and oriented X 3, normal motor function, normal sensory function, no focal deficits noted. [] Psychologic: Affect normal, judgement normal, mood normal-not tearful, reasonable Current Patient Data: Labs: Laboratory Tests Test 03/07/20 15:50 03/07/20 15:55 03/07/20 16:07 Urine Test Positive (NEG) Urine Opiates Screen Neg (NEG) Urine Methadone Screen Neg (NEG) Urine Barbiturates Neg (NEG) Urine Phencyclidine Screen Neg (NEG) Urine Amphetamine/Methamphetamine Neg (NEG) Urine Benzodiazepines Screen Neg (NEG) Urine Cocaine Screen Neg (NEG) Urine Cannabinoids Screen Pos (NEG) Urine Ethyl Alcohol Neg (NEG) White Blood Count 8.6 x10^3/uL (4.0-11.0) Red Blood Count 4.02 x10^6/uL (3.50-5.40) Hemoglobin 11.7 g/dL (12.0-15.5) L Hematocrit 34.4 % (36.0-47.0) L Mean Corpuscular Volume 86 fL (79-100) Mean Corpuscular Hemoglobin 29 pg (25-35) Mean Corpuscular Hemoglobin Concent 34 g/dL (31-37) Red Cell Distribution Width 13.8 % (11.5-14.5) Platelet Count 177 x10^3/uL (140-400) Neutrophils (%) (Auto) 70 % (31-73) Lymphocytes (%) (Auto) 18 % (24-48) L Monocytes (%) (Auto) 7 % (0-9) Eosinophils (%) (Auto) 4 % (0-3) H Basophils (%) (Auto) 1 % (0-3) Neutrophils # (Auto) 6.0 x10^3/uL (1.8-7.7) Lymphocytes # (Auto) 1.6 x10^3/uL (1.0-4.8) Monocytes # (Auto) 0.6 x10^3/uL (0.0-1.1) Eosinophils # (Auto) 0.3 x10^3/uL (0.0-0.7) Basophils # (Auto) 0.0 x10^3/uL (0.0-0.2) Sodium Level 137 mmol/L (136-145) Potassium Level 3.5 mmol/L (3.5-5.1) Chloride Level 102 mmol/L (98-107) Carbon Dioxide Level 29 mmol/L (21-32) Anion Gap 6 (6-14) Blood Urea Nitrogen 7 mg/dL (7-20) Creatinine 0.6 mg/dL (0.6-1.0) Estimated GFR (Cockcroft-Gault) 146.2 BUN/Creatinine Ratio 12 (6-20) Glucose Level 65 mg/dL (70-99) L Calcium Level 8.5 mg/dL (8.5-10.1) Total Bilirubin 0.2 mg/dL (0.2-1.0) Aspartate Amino Transferase (AST) 12 U/L (15-37) L Alanine Aminotransferase (ALT) 11 U/L (14-59) L Alkaline Phosphatase 44 U/L (46-116) L Total Protein 7.1 g/dL (6.4-8.2) Albumin 2.8 g/dL (3.4-5.0) L Albumin/Globulin Ratio 0.7 (1.0-1.7) L Ethyl Alcohol Level < 10 mg/dL (0-10) POC Urine HCG, Qualitative Hcg positive (Negative) Laboratory Tests 03/07/20 15:55 Laboratory Tests 03/07/20 15:55 Vital Signs: Vital Signs Date Time Temp Pulse Resp B/P (MAP) Pulse Ox O2 Delivery O2 Flow Rate FiO2 03/07/20 15:04 98.6 79 18 97/56 (70) 98 Room Air 98.6 EKG: EKG: [] Radiology/Procedures: Radiology/Procedures: [] Course & Med Decision Making: Course & Med Decision Making Pertinent Labs and Imaging studies reviewed. (See chart for details) Concern for depression in the setting of -patient reports her last menstrual period was January 25, 2020. Denies any abdominal pain, back pain or vaginal bleeding. Admits to daily marijuana use. Patient was assessed by psych team that recommended [place] follow-up with [facility]. Strict ED return precautions were given for suicidal ideations, homicidal ideations, abdominal pain, back pain or vaginal bleeding. Encouraged urgent outpatient follow-up with PMD and CART PUSHER and psych resources. Life-threatening processes were considered but are low suspicion at this time, given history and physical exam. Pt was educated on all prescription medications and adverse effe cts. All patient's questions were answered and pt was stable at time of discharge. I spoken with the patient and her caregivers. I explained the patient's condition, diagnoses and treatment plan based on the information available to me at this time. I have answered the patient and her caregiver's questions and addressed any concerns. The patient and her caregivers have a good understanding of patient's diagnosis, condition and treatment plan as can be expected at this point. Vital signs have been stable. Patient's condition is stable and appropriate for discharge from the emergency department. Patient will pursue further outpatient evaluation with primary care physician or other designated or consulting physician as outlined in the discharge instructions. The patient and/or caregivers are agreeable to this plan of care and follow-up instructions have been explained in detail. The patient and/or caregivers have received these instructions in written form and have expressed an understanding of the discharge instructions. The patient and/or caregivers are aware that any significant change of condition or worsening of symptoms should prompt immediate return to this or the closest emergency department or call to 911. Mode Disclaimer: Mode Disclaimer: This electronic medical record was generated, in whole or in part, using a voice recognition dictation system. Departure Departure Impression: Primary Impression: Depression Additional Impressions: Tetrahydrocannabinol (THC) use disorder, mild, abuse Disposition: 01 HOME, SELF-CARE Condition: STABLE Referrals: NO PCP (PCP) Patient Instructions: Depression, Adult, Care Additional Instructions: Lloyd Diaz MD Obstetrics and Gynecology Address: [address] [place] [address] Scripts Pnv Cmb#95/Ferrous Fumarate/Fa ( TABLET) 1 Each Tablet 1 TAB PO DAILY for 30 Days, #30 TAB 0 Refills Prov: NETO POSADA DO 03/07/20 Justicifation of Admission Dx: Justifications for Admission: Justification of Admission Dx: N/A NETO POSADA DO Mar 07, 2020 16:40
[2020-03-07] MEDS ORDERED: PNV1TABL25 PO (17:13)
== END 2020-03-07 17:20 | disposition home or self-care (01) ==
LOC: ER 14:44
DX: O26.891 Other specified pregnancy related conditions, first trimester (principal); F32.9 Major depressive disorder, single episode, unspecified; F12.10 Cannabis abuse, uncomplicated; Z3A.01 Less than 8 weeks gestation of pregnancy
CPT/HCPCS: 36415; 80053; 80307; 81025; 85025; 99283; G0480

== ENCOUNTER 2020-03-16 14:40 | Emergency (ER) | payer SELFPAY ==
[~2020-03-16] VITALS: Ht 157.5 cm; Wt 45.0 kg
[~2020-03-16 14:40] MED LIST changes: +PNV1TABL25 PO
[2020-03-16 15:00] VITALS: BP 119/63
[2020-03-16] MEDS ORDERED: ACET325T9 PO (15:45)
[2020-03-16] MEDS ORDERED: ACETAMINOPHEN 500 MG TABLET PO ONE (15:45)
[2020-03-16] MEDS ORDERED: CYCL5TAB PO (15:45)
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
== END 2020-03-16 16:01 | disposition home or self-care (01) ==
LOC: ER 14:40
DX: O9A.211 Injury, poisoning and certain other consequences of external causes complicating pregnancy, first trimester (principal); M54.6 Pain in thoracic spine; Z3A.00 Weeks of gestation of pregnancy not specified; V49.49XA Driver injured in collision with other motor vehicles in traffic accident, initial encounter; Y92.488 Other paved roadways as the place of occurrence of the external cause; Y93.89 Activity, other specified; Y99.8 Other external cause status
CPT/HCPCS: 99283

== ENCOUNTER 2020-10-08 19:11 | Emergency (ER) | payer SELFPAY ==
[~2020-10-08] VITALS: Ht 157.5 cm; Wt 50.0 kg
[~2020-10-08 19:11] MED LIST changes: +CYCL5TAB PO
[2020-10-08 19:49] LABS: BILIRUBIN,URINE NEGATIVE (NEG); COLOR,URINE AMBER; NITRITE,URINE NEGATIVE (NEG); PH,URINE 6.5 (<5.0-8.0); PROTEIN,URINE 30 mg/dL (NEG-TRACE)
[2020-10-08 19:56] LABS: CLARITY,URINE CLOUDY; RBC,URINE >40 /HPF (0-2)
[2020-10-08 19:58] LABS: BACTERIA,URINE FEW /HPF (0-FEW)
[2020-10-08 20:01] LABS: U PREG PATIENT POSITIVE (NEG)
[2020-10-08] MEDS ORDERED: ACETAMINOPHEN 500 MG TABLET PO ONE (20:15)
[2020-10-08] MEDS ORDERED: MORPHINE SULFATE 4 MG/ML VIAL. IV ONE (20:45)
[2020-10-08] MEDS ORDERED: IV NORMAL SALINE 1000ML BAG 1,000 ML IV ONE (20:45)
[2020-10-08] MEDS ORDERED: ONDANSETRON PF 4 MG/2 ML VIAL. IV ONE (20:45)
[2020-10-08 20:58] LABS: BASO % 0 % (0-3); EOS # 0.2 x10^3/uL (0.0-0.7); EOS % 2 % (0-3); HEMATOCRIT 33.5 % (36.0-47.0); HEMOGLOBIN 11.2 g/dL (12.0-15.5); LYMPH # 0.9 x10^3/uL (1.0-4.8); LYMPH % 10 % (24-48); MEAN CORPUSCULAR HEMOGLOBIN 28 pg (25-35); MEAN CORPUSCULAR HGB CONC 34 g/dL (31-37); MEAN CORPUSCULAR VOLUME 84 fL (79-100); MONO # 0.6 x10^3/uL (0.0-1.1); MONO % 7 % (0-9); NEUT # 7.5 x10^3/uL (1.8-7.7); NEUT % 81 % (31-73); PLATELET COUNT 202 x10^3/uL (140-400); RED BLOOD COUNT 3.97 x10^6/uL (3.50-5.40); RED CELL DISTRIBUTION WIDTH 14.5 % (11.5-14.5); WHITE BLOOD COUNT 9.2 x10^3/uL (4.0-11.0)
[2020-10-08 22:00] VITALS: BP 102/59
--- NOTE | 2020-10-08 22:07 | RAD ---
Exam: Ultrasound OB less than 14 weeks Indication: Vaginal bleeding, Technique: Real-time grayscale and color Doppler images of the pelvis were obtained by the department dipping machine operator. Comparisons: None FINDINGS: Uterus measures 11 x 6.4 x 5.4 cm. No intrauterine gestational sac, yolk sac or pole identified . Right ovary measures 2 x 2 by 2.2 cm. Liver measures 2.4 x 1.7 x 1.0 cm. Vascular flow identified within the ovaries bilaterally. There is a small amount of free fluid noted in the pelvis. IMPRESSION: No gestational sac, yolk sac or pole identified. Differential considerations include an early I UP, failed IUP or nonvisualized ectopic . Recommend correlation with serial beta hCG measure ments and short-term follow-up ultrasound. Electronically signed by: Vani Frank MD (10/08/2020 10:04 PM) AILYN
--- NOTE | 2020-10-08 22:09 | ED.ADGEN ---
Past Medical History Past Medical History: No Pertinent History Past Surgical History: No Surgical History Smoking Status: Never Smoker Alcohol Use: None Drug Use: None General Adult EDM: Chief Complaint: ABDOMINAL PAIN HPI: HPI: Patient is a 24 year old AA female, accompanied by her significant other, who presents emergency department with complaints of severe pelvic pain and cramps that began tonight. Patient reports that she has been on her menstrual cycle for the last for 5 days but that tonight her cramping became much more strong and painful. Patient states her last menstrual cycle was a month ago. She states that she is 1 para 1. She denies any fever, cough, shortness of breath, dysuria, hematuria, increased urinary frequency, back pain, nausea, vomiting, or diarrhea. Patient states that she is not on control but she and her partner do use condoms she denies any concerns of . Patient reports that she took ibuprofen twice today with no relief of her pain, she currently rates her pain a 10 out of 10 on pain scale, she denies any alleviating factors. Review of Systems: Review of Systems: Complete ROS is negative unless otherwise noted in HPI. Current Medications: Current Medications Medications (Trade) Dose Ordered Sig/Alireza Start Time Stop Time Status Last Admin Dose Admin Acetaminophen (Tylenol) 1,000 mg 1X ONCE 10/08/20 20:15 10/08/20 20:39 DC Morphine Sulfate (Morphine Sulfate) 4 mg 1X ONCE 10/08/20 20:45 10/08/20 20:46 DC 10/08/20 21:00 4 MG Ondansetron HCl (Zofran) 4 mg 1X ONCE 10/08/20 20:45 10/08/20 20:46 DC 10/08/20 21:00 4 MG Sodium Chloride 1,000 ml @ 1,000 mls/hr 1X ONCE 10/08/20 20:45 10/08/20 21:44 DC 10/08/20 20:59 1,000 MLS/HR Allergies: Allergies: Allergies Coded Allergies Type Severity Reaction Last Updated Verified No Known Drug Allergies 08/19/16 No Physical Exam: PE: See Above Constitutional: Well developed, well nourished, no acute distress, non-toxic appearance. [] HENT: Normocephalic, atraumatic, bilateral external ears normal, nose normal. [] Eyes: PERRLA, EOMI, conjunctiva normal, no discharge. [] Neck: Normal range of motion, no stridor. [] Cardiovascular:Heart rate regular rhythm Lungs & Thorax: Respirations even and unlabored, no retractions, no respiratory distress Abdomen: soft, no rebound tenderness, no guarding, no pulsatile mass, no palpable mass; suprapubic tenderness to palpation Skin: Warm, dry, no erythema, no rash. [] Extremities: No cyanosis, ROM intact, no edema. [] Neurologic: Alert and oriented X 3, no focal deficits noted. [] Psychologic: Affect normal, judgement normal, mood normal. [] Current Patient Data: Labs: Laboratory Tests Test 10/08/20 19:37 10/08/20 20:48 Urine Collection Type Unknown Urine Color Shaneka Urine Clarity Cloudy Urine pH 6.5 (<5.0-8.0) Urine Specific [place]iles 1.015 (1.000-1.030) Urine Protein 30 mg/dL (NEG-TRACE) Urine Glucose (UA) Negative mg/dL (NEG) Urine Ketones (Stick) Trace mg/dL (NEG) Urine Blood Large (NEG) Urine Nitrite Negative (NEG) Urine Bilirubin Negative (NEG) Urine Urobilinogen Dipstick 1.0 mg/dL (0.2 mg/dL) Urine Leukocyte Esterase Trace (NEG) Urine RBC >40 /HPF (0-2) Urine WBC 1-4 /HPF (0-4) Urine Squamous Epithelial Cells Few /LPF Urine Bacteria Few /HPF (0-FEW) Urine Mucus Slight /LPF Urine Test Positive (NEG) White Blood Count 9.2 x10^3/uL (4.0-11.0) Red Blood Count 3.97 x10^6/uL (3.50-5.40) Hemoglobin 11.2 g/dL (12.0-15.5) L Hematocrit 33.5 % (36.0-47.0) L Mean Corpuscular Volume 84 fL (79-100) Mean Corpuscular Hemoglobin 28 pg (25-35) Mean Corpuscular Hemoglobin Concent 34 g/dL (31-37) Red Cell Distribution Width 14.5 % (11.5-14.5) Platelet Count 202 x10^3/uL (140-400) Neutrophils (%) (Auto) 81 % (31-73) H Lymphocytes (%) (Auto) 10 % (24-48) L Monocytes (%) (Auto) 7 % (0-9) Eosinophils (%) (Auto) 2 % (0-3) Basophils (%) (Auto) 0 % (0-3) Neutrophils # (Auto) 7.5 x10^3/uL (1.8-7.7) Lymphocytes # (Auto) 0.9 x10^3/uL (1.0-4.8) L Monocytes # (Auto) 0.6 x10^3/uL (0.0-1.1) Eosinophils # (Auto) 0.2 x10^3/uL (0.0-0.7) Basophils # (Auto) 0.0 x10^3/uL (0.0-0.2) Maternal Serum HCG Beta Subunit 95532 mIU/mL (0-5) H Laboratory Tests 10/08/20 20:48 Vital Signs: Vital Signs Date Time Temp Pulse Resp B/P (MAP) Pulse Ox O2 Delivery O2 Flow Rate FiO2 10/08/20 22:00 74 16 102/59 (73) 98 Room Air 10/08/20 19:20 98.9 98.9 EKG: EKG: [] Heart Score: C/O Chest Pain: No Risk Scores: Score 0 - 3: 2.5% MACE over next 6 weeks - Discharge Home Score 4 - 6: 20.3% MACE over next 6 weeks - Admit for Clinical Observation Score 7 - 10: 72.7% MACE over next 6 weeks - Early Invasive Strategies Radiology/Procedures: Radiology/Procedures: PROCEDURE: OB <14 WKS W/TV Exam: Ultrasound OB less than 14 weeks Indication: Vaginal bleeding, Technique: Real-time grayscale and color Doppler images of the pelvis were obtained by the department school curriculum developer. Comparisons: None FINDINGS: Uterus measures 11 x 6.4 x 5.4 cm. No intrauterine gestational sac, yolk sac or pole identified. Right ovary measures 2 x 2 by 2.2 cm. Liver measures 2.4 x 1.7 x 1.0 cm. Vascular flow identified within the ovaries bilaterally. There is a small amount of free fluid noted in the pelvis. IMPRESSION: No gestational sac, yolk sac or pole identified. Differential considerations include an early IUP, failed IUP or nonvisualized ectopic pre gnancy. Recommend correlation with serial beta hCG measurements and short-term follow-up ultrasound. Electronically signed by: Vani Frank MD (10/08/2020 10:04 PM) [facility] [] Course & Med Decision Making: Course & Med Decision Making Pertinent Labs and Imaging studies reviewed. (See chart for details) Patient is blood type O+ per review of her chart 2220-I spoke with Dr. Diaz about the patient and advised of the hCG level, and ultrasound result. I advised him that I just discussed the ultrasound report with the patient who stated that she passed a large piece of blood clot/tissue and has since had a great improvement in her pelvic pain. The patient would like to be discharged home. I will instruct the patient to follow-up on Saturday for repeat hCG and ultrasound. Patient's vital signs are stable throughout emergency department stay. Patient verbalized an understanding of home care, medications, follow-up, and return to ED instructions and was in agreement with the plan of care. [] Dragon Disclaimer: Dragon Disclaimer: This electronic medical record was generated, in whole or in part, using a voice recognition dictation system. Departure Departure Impression: Primary Impression: Vaginal bleeding before 22 weeks gestation Additional Impression: Miscarriage Disposition: DC HOME SELF CARE/HOMELESS Condition: STABLE Referrals: JOSE ARRIAZA Jr, MD Patient Instructions: Miscarriage, [id number] Additional Instructions: Tylenol or ibuprofen as needed for pain. Follow-up with Dr. Arriaza or Dr. Diaz on Saturday for repeat hCG level and a repeat ultrasound. Do not use tampons or insert anything vaginally until you have been evaluated by the employment program representative. Return to the ER if your symptoms worsen, you develop fever, or your bleeding becomes heavier and you are saturating more than 1 pad per hour. Attending Signature Attending Signature I have reviewed the PA/PNEUMATIC TOOL REPAIRER's note and plan of care. I was available for consultation as needed during the patient's visit in the emergency department. I agree with the clinical impression, plan, and disposition. Problem Qualifiers JORGE LUIS LEDESMA APRN Oct 08, 2020 22:09 MARIBEL FERRELL DO Oct 09, 2020 00:11
== END 2020-10-08 22:43 | disposition home or self-care (01) ==
LOC: ER 19:11
DX: O03.9 Complete or unspecified spontaneous abortion without complication (principal); Z3A.01 Less than 8 weeks gestation of pregnancy
CPT/HCPCS: 36415; 76801; 76817; 81001; 81025; 84702; 85025; 87086; 96361; 96374; 96375; 99285; J2270; J2405; J7030

== ENCOUNTER 2021-05-23 21:00 | Emergency (ER) | payer SELFPAY ==
[~2021-05-23] VITALS: Ht 157.5 cm; Wt 50.0 kg
[2021-05-23 22:20] VITALS: BP 123/73
--- NOTE | 2021-05-23 23:44 | RAD ---
Exam: Left hand 3 views INDICATION: Foreign body, right pinky TECHNIQUE: Frontal, lateral and oblique views of the left hand Comparisons: None FINDINGS: There is a 2 mm linear radiodensity within the soft tissues anterior to the middle phalanx of the fif th digit. Bone mineralization is normal. No acute or healed fractures. Joint spaces are well-maintain ed. IMPRESSION: 2 mm linear radiopaque foreign body in the soft tissues anterior to the middle phalanx of the fifth d igit. Electronically signed by: Vani Frank MD (05/23/2021 11:41 PM) AILY[facility]
[2021-05-23] MEDS ORDERED: CEPH500C PO (23:58)
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
== END 2021-05-24 00:17 | disposition home or self-care (01) ==
LOC: ER 21:00
DX: S60.457A Superficial foreign body of left little finger, initial encounter (principal); L03.114 Cellulitis of left upper limb; F17.200 Nicotine dependence, unspecified, uncomplicated; X58.XXXA Exposure to other specified factors, initial encounter; Y93.89 Activity, other specified; Y92.89 Other specified places as the place of occurrence of the external cause; Y99.8 Other external cause status
CPT/HCPCS: 73130; 99283

== ENCOUNTER 2021-09-23 18:26 | Emergency (ER) | payer SELFPAY ==
[~2021-09-23] VITALS: Ht 175.3 cm; Wt 79.0 kg
[~2021-09-23 18:26] MED LIST changes: +CEPH500C PO
[2021-09-23 18:35] VITALS: BP 137/61
[2021-09-23] MEDS ORDERED: HYDROcodone/APAP 5/325MG 1 TAB TABLET PO ONE (19:00)
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
[2021-09-23] MEDS ORDERED: HYDR-2761 PO (21:54)
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
== END 2021-09-23 22:03 | disposition home or self-care (01) ==
LOC: ER 18:26 → EEVIPCON 18:26 → ER 22:03
DX: S02.5XXA Fracture of tooth (traumatic), initial encounter for closed fracture (principal); S09.90XA Unspecified injury of head, initial encounter; M25.461 Effusion, right knee; F17.200 Nicotine dependence, unspecified, uncomplicated; Y08.89XA Assault by other specified means, initial encounter; Y93.89 Activity, other specified; Y92.89 Other specified places as the place of occurrence of the external cause; Y99.8 Other external cause status
CPT/HCPCS: 70150; 70450; 73564; 81025; 99284-25

== ENCOUNTER 2021-11-01 03:56 | Emergency (ER) | payer SELFPAY ==
[~2021-11-01] VITALS: Ht 160 cm; Wt 50.0 kg
[~2021-11-01 03:56] MED LIST changes: +HYDR-2761 PO
[2021-11-01] MEDS ORDERED: IPRATRPIUM/ALBUTEROL 0.5/2.5MG 3 ML NEBU. NEB ONE (05:15)
[2021-11-01] MEDS ORDERED: ALBUTEROL SULFATE 2.5 MG/3 ML NEBU. NEB ONE (05:15)
[2021-11-01] MEDS ORDERED: IV NORMAL SALINE 1000ML BAG 1,000 ML IV ONE (05:15)
[2021-11-01] MEDS ORDERED: methylPREDNISolone SOD SUCC PF 125 MG/2 ML VIAL. IV ONE (05:15)
[2021-11-01 05:58] LABS: CALCIUM 8.7 mg/dL (8.5-10.1); CREATININE 0.7 mg/dL (0.6-1.0); GFR 120.6; POTASSIUM 3.3 mmol/L (3.5-5.1)
[2021-11-01 06:00] LABS: BASO % 0 % (0-3); EOS # 0.4 x10^3/uL (0.0-0.7); EOS % 6 % (0-3); HEMATOCRIT 36.8 % (36.0-47.0); HEMOGLOBIN 12.3 g/dL (12.0-15.5); LYMPH # 0.7 x10^3/uL (1.0-4.8); LYMPH % 10 % (24-48); MEAN CORPUSCULAR HEMOGLOBIN 28 pg (25-35); MEAN CORPUSCULAR HGB CONC 34 g/dL (31-37); MEAN CORPUSCULAR VOLUME 84 fL (79-100); MONO # 0.4 x10^3/uL (0.0-1.1); MONO % 6 % (0-9); NEUT # 5.6 x10^3/uL (1.8-7.7); NEUT % 78 % (31-73); PLATELET COUNT 213 x10^3/uL (140-400); RED BLOOD COUNT 4.36 x10^6/uL (3.50-5.40); RED CELL DISTRIBUTION WIDTH 13.5 % (11.5-14.5); WHITE BLOOD COUNT 7.1 x10^3/uL (4.0-11.0)
[2021-11-01 06:01] LABS: ALBUMIN 3.4 g/dL (3.4-5.0); ALBUMIN/GLOBULIN RATIO 0.8 (1.0-1.7); TOTAL BILIRUBIN 0.3 mg/dL (0.2-1.0); TOTAL PROTEIN 7.5 g/dL (6.4-8.2)
[2021-11-01 06:11] LABS: PREG TEST PT QUAL NEGATIVE (NEG)
[2021-11-01] MEDS ORDERED: FAMOTIDINE 20 MG/2 ML VIAL IVP ONE (06:30)
[2021-11-01] MEDS ORDERED: LIDO:MAALOX 1:1 20 ML SINGLE DOSE. SWSW ONE (06:30)
--- NOTE | 2021-11-01 06:31 | PHYS DOC ---
Past Medical History Past Medical History: No Pertinent History (ANGELINA ENNIS MD) Past Surgical History: No Surgical History (ANGELINA ENNIS MD) Smoking Status: Never Smoker Alcohol Use: None Drug Use: None (ANGELINA ENNIS MD) Adult General Chief Complaint Chief Complaint: COUGH HPI HPI 26-year-old female smoker presents for evaluation of shortness of breath and co ugh with onset a couple of hours prior to arrival. Patient states she went to bed in her normal state of health and woke up with the symptoms. Associated midsternal burning nonpleuritic nonexertional chest discomfort. No fevers, vomiting, upper respiratory congestion/rhinorrhea, cough, sore throat, abdominal pain, flank pain, back pain, dysuria, hematuria, polyuria or oliguria, changes in bowel habits, pain or swelling to arms or legs. Vital signs are appropriate here aside from borderline oxygen saturation on room air and the patient is in no acute distress. She is wheezing to all goodman on auscultation. (ANGELINA ENNIS MD) Review of Systems Review of Systems A 12 point review of systems was completed and was negative except where noted in HPI above. (ANGELINA ENNIS MD) Current Medications Current Medications Current Medications Medications (Trade) Dose Ordered Sig/Alireza Start Time Stop Time Status Last Admin Dose Admin Albuterol Sulfate (Ventolin Neb Soln) 2.5 mg 1X ONCE 11/01/21 05:15 11/01/21 05:16 DC 11/01/21 05:15 2.5 MG Albuterol/ Ipratropium (Duoneb) 3 ml 1X ONCE 11/01/21 05:15 11/01/21 05:16 DC 11/01/21 05:15 3 ML Famotidine (Pepcid Vial) 20 mg 1X ONCE 11/01/21 06:30 11/01/21 06:31 DC 11/01/21 07:21 20 MG Ketorolac Tromethamine (Toradol 15mg Vial) 15 mg 1X ONCE 11/01/21 06:45 11/01/21 06:46 DC 11/01/21 07:19 15 MG Methylprednisolone Sodium Succinate (SOLU-Medrol 125MG VIAL) 125 mg 1X ONCE 11/01/21 05:15 11/01/21 05:16 DC 11/01/21 05:15 125 MG Multi-Ingredient Mouthwash/Gargle (Gi Cocktail) 20 ml 1X ONCE 11/01/21 06:30 11/01/21 06:31 DC 11/01/21 07:18 20 ML Sodium Chloride 1,000 ml @ 1,000 mls/hr 1X ONCE 11/01/21 05:15 11/01/21 06:14 DC 11/01/21 05:15 1,000 MLS/HR (DEBBIE STANFORD DO) Allergies Allergies Allergies Coded Allergies Type Severity Reaction Last Updated Verified No Known Drug Allergies 11/01/21 No (DEBBEI STANFORD DO) Physical Exam Physical Exam 26-year-old female appearing nontoxic and in no acute distress. Head is normocephalic and atraumatic. Neck is supple and nontender. Oropharynx is moist. Lungs with diminished breath sounds to all goodman but reasonable air movement bilaterally. Wheezes noted to all goodman. No crackles or other adventitious sounds. No increased work of breathing. Speaking comfortably in full sentences and normal tone of voice. There is normal S1 and S2 without rubs or gallops and capillary refill is appropriate, less than 2 seconds globally. Abdomen is soft, nontender nondistended. Skin is warm and dry without cyanosis, clubbing or edema. Psychiatrically, the patient demonstrates appropriate mood and affect and is alert. Evaluation of the extremities reveals BUEs and BLEs neurovascularly intact distally with strength 5 out of 5, sensation intact light touch in all nerve distributions, radial, DP and PT pulses 2+ bilaterally, capillary refill less than 2 seconds, hands and feet warm and well-perfused. No dependent peripheral edema distally. No calf tenderness swelling bilaterally. Homans test is negative bilaterally. (ANGELINA ENNIS MD) Current Patient Data Vital Signs Vital Signs Date Time Temp Pulse Resp B/P (MAP) Pulse Ox O2 Delivery O2 Flow Rate FiO2 11/01/21 05:43 95 11/01/21 04:55 97.8 97 20 129/77 (94) Room Air 97.8 (DEBBIE STANFORD DO) Lab Values Laboratory Tests Test 11/01/21 05:37 11/01/21 07:20 White Blood Count 7.1 x10^3/uL (4.0-11.0) Red Blood Count 4.36 x10^6/uL (3.50-5.40) Hemoglobin 12.3 g/dL (12.0-15.5) Hematocrit 36.8 % (36.0-47.0) Mean Corpuscular Volume 84 fL (79-100) Mean Corpuscular Hemoglobin 28 pg (25-35) Mean Corpuscular Hemoglobin Concent 34 g/dL (31-37) Red Cell Distribution Width 13.5 % (11.5-14.5) Platelet Count 213 x10^3/uL (140-400) Neutrophils (%) (Auto) 78 % (31-73) H Lymphocytes (%) (Auto) 10 % (24-48) L Monocytes (%) (Auto) 6 % (0-9) Eosinophils (%) (Auto) 6 % (0-3) H Basophils (%) (Auto) 0 % (0-3) Neutrophils # (Auto) 5.6 x10^3/uL (1.8-7.7) Lymphocytes # (Auto) 0.7 x10^3/uL (1.0-4.8) L Monocytes # (Auto) 0.4 x10^3/uL (0.0-1.1) Eosinophils # (Auto) 0.4 x10^3/uL (0.0-0.7) Basophils # (Auto) 0.0 x10^3/uL (0.0-0.2) Sodium Level 143 mmol/L (136-145) Potassium Level 3.3 mmol/L (3.5-5.1) L Chloride Level 107 mmol/L (98-107) Carbon Dioxide Level 25 mmol/L (21-32) Anion Gap 11 (6-14) Blood Urea Nitrogen 10 mg/dL (7-20) Creatinine 0.7 mg/dL (0.6-1.0) Estimated GFR (Cockcroft-Gault) 120.6 BUN/Creatinine Ratio 14 (6-20) Glucose Level 98 mg/dL (70-99) Calcium Level 8.7 mg/dL (8.5-10.1) Total Bilirubin 0.3 mg/dL (0.2-1.0) Aspartate Amino Transferase (AST) 14 U/L (15-37) L Alanine Aminotransferase (ALT) 15 U/L (14-59) Alkaline Phosphatase 56 U/L (46-116) Troponin I High Sensitivity 5 ng/L (4-50) < 4 ng/L (4-50) L Total Protein 7.5 g/dL (6.4-8.2) Albumin 3.4 g/dL (3.4-5.0) Albumin/Globulin Ratio 0.8 (1.0-1.7) L Serum Test, Qualitative Negative (NEG) SARS-CoV-2 Antigen (Rapid) Negative (NEGATIVE) Laboratory Tests 11/01/21 05:37 Laboratory Tests 11/01/21 05:37 (DEBBIE STANFORD DO) EKG EKG Sinus rhythm, rate 102, no acute ST elevation or depression, [place] 160, QRS 82, QTc 455, EP interpretation. Nonischemic tracing, intervals appropriate. (ANGELINA ENNIS MD) Radiology/Procedures Radiology/Procedures No acute cardiopulmonary process per EP interpretation. Formal radiology interpretation is to follow. (ANGELINA ENNIS MD) Course & Med Decision Making Course & Med Decision Making Patient has received breathing treatments and steroids here in the emergency department and lungs are much clear to auscultation on reassessment. Oxygen saturation better on room air. Continuing to complain of burning midsternal chest discomfort. We will give a GI cocktail and some Pepcid and will send a delta troponin and will then reevaluate. Transition of care to Dr. Stanford pending delta troponin and reevaluation for disposition. (ANGELINA ENNIS MD) Course & Med Decision Making Patient is delta troponin is normal. Patient was reevaluated states that she feels much better. Patient's symptoms consistent with a viral URI return pre cautions were discussed (DEBBIE STANFORD DO) Dragon Disclaimer Dragon Disclaimer This electronic medical record was generated, in whole or in part, using a voice recognition dictation system. (ANGELINA ENNIS MD) Departure Departure Impression: Primary Impression: Acute bronchospasm Additional Impression: Other chest pain Condition: STABLE Referrals: NO PCP (PCP) Problem Qualifiers ANGELINA ENNIS MD Nov 01, 2021 06:31 DEBBIE STANFORD DO Nov 01, 2021 08:22
--- NOTE | 2021-11-01 06:31 | RAD ---
AP chest x-ray HISTORY: Shortness of breath and wheezing. FINDINGS: Heart size normal. Mediastinal silhouette is normal. No pneumothorax, pulmonary opacities o r pleural effusions. Mild thoracic scoliosis. IMPRESSION: No acute process. Electronically signed by: Kendrick Schaeffer MD (11/01/2021 6:28 AM) [facility] [place]
[2021-11-01] MEDS ORDERED: KETOROLAC 15 MG/ML VIAL. IVP ONE (06:45)
[2021-11-01] MEDS ORDERED: ALBU2.5V8 IH (08:24)
[2021-11-01 08:30] VITALS: BP 124/69
[2021-11-01] MEDS ORDERED: DEXAMETHASONE SOD PHOS 20 MG/5 ML VIAL. IV ONE (08:30)
--- NOTE | 2021-11-02 10:31 | EKG ---
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
== END 2021-11-01 08:36 | disposition home or self-care (01) ==
LOC: ER 03:56
DX: J98.01 Acute bronchospasm (principal); R07.89 Other chest pain; Z20.822 Contact with and (suspected) exposure to COVID-19
CPT/HCPCS: 36415; 71045; 80053; 84484; 84703; 85025; 87426; 93005; 94640; 96361; 96374; 96375; 99285; J1100; J1885; J2930; J3490; J7030; J7613